=== PATIENT | female | born 1960 | race Caucasian/White ===

== ENCOUNTER 2020-09-04 10:06 | Outpatient (CLI) | payer MEDICARE, SELFPAY ==
[2020-09-04 10:44] LABS: Basophils Percent Auto 0.3 % (0.2-1.2); Eosinophils Absolute Auto 0.2 K/mm3 (0-0.3); Eosinophils Percent Auto 1.9 % (0-4.4); Hematocrit 44.5 % (37.0-47.0); Hemoglobin 14.5 g/dL (12.0-15.0); Immature Granulocyte Absolute 0.02 K/mm3 (0.00-0.031); Immature Granulocyte Percent A 0.2 % (0-0.5); Lymphocytes Absolute Auto 1.55 K/mm3 (0.9-3.2); Lymphocytes Percent Auto 17.6 % (18.3-44.2); Mean Corpuscular HGB Conc 32.6 g/dl (32-36); Mean Corpuscular Hemoglobin 32.7 pg (26-34); Mean Corpuscular Volume 100.5 fl (80-100); Mean Platelet Volume 9.8 fl (7.4-10.4); Monocytes Absolute Auto 0.7 K/mm3 (0.1-0.6); Monocytes Percent Auto 7.8 % (2.6-8.5); Neutrophils Absolute Auto 6.4 K/mm3 (1.3-6.7); Neutrophils Percent Auto 72.2 % (45.5-73.1); Platelet Count Result 256 k/mm3 (150-375); Red Blood Count 4.43 M/mm3 (4.2-5.4); Red Cell Distribution Width 13.2 % (11.5-14.5); White Blood Count 8.8 K/mm3 (4.5-10.0)
[2020-09-04 10:59] LABS: Alanine Aminotransferase 17 U/L (4-35); Alkaline Phosphatase 69 U/L (38-126); Anion Gap 4 mmol/L (8-16); Aspartate Amino Transferase 24 U/L (14-36); Bilirubin,Total 0.4 mg/dL (0.2-1.3); Blood Urea Nitrogen 13 mg/dL (7-17); Calcium 9.5 mg/dL (8.4-10.2); Carbon Dioxide 33 mmol/L (22-30); Chloride 102 mmol/L (98-107); Cholesterol 124 mg/dL (0-200); Estimated Glomerular Filt Rate > 60; Glucose 104 mg/dL (65-105); HDL Direct 39 mg/dL; Potassium 4.3 mmol/L (3.4-5.0); Sodium 139 mmol/L (137-145); Triglycerides 112 mg/dL (<150)
[2020-09-04 11:11] LABS: LDL Cholesterol Direct 58 mg/dL
[2020-09-04 11:22] LABS: Creatinine Urine 84.8 mg/dL
[2020-09-04 11:32] LABS: Total Triiodothyronine (T3) 1.09 NG/ML (0.97-1.69)
[2020-09-04 11:42] LABS: Microalbumin Urine Random < 6.0 mg/L (0-16.7)
[2020-09-04 11:43] LABS: MALB Creatinine Ratio < 7.1 mg/g (0-30)
[2020-09-04 13:55] LABS: Free T4 Free Thyroxine 1.07 ng/mL (0.78-2.19)
[2020-09-04 14:36] LABS: Vitamin D 25 Hydroxy < 12.8 ng/mL
== END 2020-09-04 10:07 | disposition home or self-care (01) ==
PROVIDERS: Family Provider Family Medicine; PCP Family Medicine; Visit Provider Nurse Practitioner
DX: I50.32 Chronic diastolic (congestive) heart failure (principal); E78.2 Mixed hyperlipidemia; E55.9 Vitamin D deficiency, unspecified
CPT/HCPCS: 36415; 80053; 80061; 82043; 82306; 84439; 84443; 84480; 85025

== ENCOUNTER 2020-10-20 09:14 | Outpatient (CLI) | payer MEDICARE, SELFPAY | END 2020-10-20 09:15 | disposition home or self-care (01) | LOC: ANHCOVIDVC 09:14 | PROVIDERS: PCP Family Medicine | DX: Z23 Encounter for immunization (principal) | CPT/HCPCS: 0001A; 91300 ==

== ENCOUNTER 2020-11-10 16:28 | Outpatient (CLI) | payer MEDICARE, SELFPAY | END 2020-11-10 16:29 | disposition home or self-care (01) | LOC: ANHCOVIDVC 16:28 | PROVIDERS: PCP Family Medicine | DX: Z23 Encounter for immunization (principal) | CPT/HCPCS: 0002A; 91300 ==

== ENCOUNTER 2020-12-22 13:48 | Outpatient (CLI) | payer MEDICARE, SELFPAY ==
[2020-12-22 15:21] LABS: Vitamin D 25 Hydroxy 25.6 ng/mL
== END 2020-12-22 13:49 | disposition home or self-care (01) ==
PROVIDERS: PCP Family Medicine; Visit Provider Nurse Practitioner
DX: E55.9 Vitamin D deficiency, unspecified (principal)
CPT/HCPCS: 36415; 82306

== ENCOUNTER → 2020-12-28 01:02 | Outpatient (CLI) | payer MEDICARE, SELFPAY ==
[2020-12-28 18:48] LABS: SARS-CoV-2 RNA PCR Negative
== END ==
PROVIDERS: PCP Family Medicine; Visit Provider Internal Medicine Gastroenterology
DX: Z01.812 Encounter for preprocedural laboratory examination (principal); Z20.822 Contact with and (suspected) exposure to COVID-19
CPT/HCPCS: C9803; U0003; U0005

== ENCOUNTER 2020-12-31 01:51 | Day surgery (SDC) | payer MEDICARE, SELFPAY ==
[2020-12-23 14:28] VITALS: BMI 27.8
[2020-12-31 06:52] VITALS: BP 115/68; PULSE 74; RESP 18; TEMP 36.2; O2SAT 96
[2020-12-31] MEDS: LACTATED RINGERS 1,000 ML 150 ML IV CONT (07:02)
--- NOTE | 2020-12-31 07:31 | WPDGICN ---
GI Consult Note Consult date/time: 12/31/20 07:31 HPI: Reason for visit is colonoscopy. This very pleasant lady seen in consultation request of the primary physician. Impression: Screening and surveillance colonoscopy. The patient's history adenomatous colon polyps. COPD. Tobacco abuse. Anxiety/depression. HLD. HTN. Chronic back pain. Recommendation: Colonoscopy. History: This very pleasant lady is here for screening and surveillance colonoscopy. She has a history adenomatous colon polyps. GI review systems negative. Physical examination: General: very pleasant patient in no acute distress. HEENT: Head was normocephalic sclerae is clear mouth without masses neck was supple. Heart: Rate rhythm regular without S3 or S4. Lungs: decreased breath sounds bilaterally. Abdomen: Soft with no guarding or rigidity. Bowel sounds were active. Neurologic: Cranial nerves 2 through 12 intact. No focal defects. No clonus. Musculoskeletal system: Revealed no joint tenderness or swelling no muscle atrophy. Extremities: Reveal no significant edema. Skin: Warm and dry with normal turgor. Mental status: intact. Patient is alert and oriented. Review of Systems Review of Systems: All systems reviewed & are unremarkable except as noted in HPI and below PMFSH Past Medical History Medical History Anxiety and depression CHF (congestive heart failure) Chronic back pain Chronic constipation COPD (chronic obstructive pulmonary disease) Dyslipidemia Family hx of colon cancer Hx of adenomatous colonic polyps Hx of diverticulitis of colon Hypertension Surgical History Surgical History History of bilateral carpal tunnel release History of lumbar spinal fusion Hx of appendectomy Hx of bone graft Hx of cholecystectomy Hx of colonoscopy Hx of repair of rotator cuff Hx of rotator cuff surgery Hx of tonsillectomy Hx of total hysterectomy Family History Family History Mother Heart disease Cerebrovascular accident Father Heart disease Vocal cord cancer Sibling Lymphoma Other Carcinoma of colon Social History Social History Smoking packs per day: 1 Smoking cigarettes per day: 20.0 Years smoked: 30 Smoking pack-years: 30.00 Smoking status: Current every day smoker Tobacco type: cigarettes Alcohol intake: never Substance use: never Living arrangements: with family Gender identity (if verbalized by the patient): Female Spiritual care concerns: No Meds Home Medications and Allergies Home Medications Medication Instructions Recorded Confirmed Type albuterol sulfate 2 puff INHALATION Q4-5H PRN 07/30/19 12/23/20 History atorvastatin 20 mg PO HS 07/30/19 12/23/20 History carvedilol 12.5 mg PO BID 07/30/19 12/23/20 History cyclobenzaprine 10 mg PO TID 07/30/19 12/23/20 History fenofibrate 160 mg PO DAILY 07/30/19 12/23/20 History furosemide 20 mg PO QAM 07/30/19 12/23/20 History naloxegol [Movantik] 25 mg PO QAM 07/30/19 12/23/20 History oxycodone-acetaminophen 1 tablet PO Q4-5H 07/30/19 12/23/20 History quetiapine 50 mg PO HS 07/30/19 12/23/20 History sertraline 100 mg PO QAM 07/30/19 12/23/20 History triamcinolone acetonide 1 applic TOPICAL BID PRN 07/30/19 12/23/20 History fluticasone propion-salmeterol 2 puff INHALATION Q12H 12/23/20 12/23/20 History [Advair HFA] lisinopril 2.5 mg PO DAILY 12/23/20 12/23/20 History Allergies Allergy/AdvReac Type Severity Reaction Status Date / Time Penicillins Allergy Mild HIVES Verified 12/31/20 06:51 codeine Allergy Unknown Hives Verified 12/31/20 06:51 Contrast Media Allergy Unknown SOB Uncoded 12/23/20 14:24 Vital Signs Vital Signs - 24 hr 12/31/20 06:52 Temperature 36.2 C L Pulse Rate 74
--- NOTE | 2020-12-31 07:33 | WPDANESEPPF ---
Anes - Initial Pre Proc Eval Procedure: Operation Date: 12/31/20 08:00 Proposed Procedures p Screening Colonoscopy - Luis Heaton DO Date/Time: 12/31/20 07:33 Surgeon: Luis Heaton DO Pre Op Diagnosis: family hx colon ca, hx of colon polyps Patient Data Age: 60 Gender: F Height: 5 ft 5 in Weight: 76 kg Last Vital Signs Temp 97.1 F L 12/31/20 06:52 Pulse 74 12/31/20 06:52 Resp 18 12/31/20 06:52 BP 115/68 12/31/20 06:52 Pulse Ox 96 12/31/20 06:52 Allergies Allergy/AdvReac Type Severity Reaction Status Date / Time Penicillins Allergy Mild HIVES Verified 12/31/20 06:51 codeine Allergy Unknown Hives Verified 12/31/20 06:51 Contrast Media Allergy Unknown SOB Uncoded 12/23/20 14:24 Home Medications Medication Instructions Recorded Confirmed Type albuterol sulfate 2 puff INHALATION Q4-5H PRN 07/30/19 12/23/20 History atorvastatin 20 mg PO HS 07/30/19 12/23/20 History carvedilol 12.5 mg PO BID 07/30/19 12/23/20 History cyclobenzaprine 10 mg PO TID 07/30/19 12/23/20 History fenofibrate 160 mg PO DAILY 07/30/19 12/23/20 History furosemide 20 mg PO QAM 07/30/19 12/23/20 History naloxegol [Movantik] 25 mg PO QAM 07/30/19 12/23/20 History oxycodone-acetaminophen 1 tablet PO Q4-5H 07/30/19 12/23/20 History quetiapine 50 mg PO HS 07/30/19 12/23/20 History sertraline 100 mg PO QAM 07/30/19 12/23/20 History triamcinolone acetonide 1 applic TOPICAL BID PRN 07/30/19 12/23/20 History fluticasone propion-salmeterol 2 puff INHALATION Q12H 12/23/20 12/23/20 History [Advair HFA] lisinopril 2.5 mg PO DAILY 12/23/20 12/23/20 History Patient hx anesthesia problems: none Family hx anesthesia problems: none PMFSH Past Medical History Medical History Anxiety and depression CHF (congestive heart failure) Chronic back pain Chronic constipation COPD (chronic obstructive pulmonary disease) Dyslipidemia Family hx of colon cancer Hx of adenomatous colonic polyps Hx of diverticulitis of colon Hypertension Surgical History Surgical History History of bilateral carpal tunnel release History of lumbar spinal fusion Hx of appendectomy Hx of bone graft Hx of cholecystectomy Hx of colonoscopy Hx of repair of rotator cuff Hx of rotator cuff surgery Hx of tonsillectomy Hx of total hysterectomy Family History Family History Mother Heart disease Cerebrovascular accident Father Heart disease Vocal cord cancer Sibling Lymphoma Other Carcinoma of colon Social History Social History Smoking packs per day: 1 Smoking cigarettes per day: 20.0 Years smoked: 30 Smoking pack-years: 30.00 Smoking status: Current every day smoker Tobacco type: cigarettes Alcohol intake: never Substance use: never Living arrangements: with family Gender identity (if verbalized by the patient): Female Spiritual care concerns: No Anes - Eval Final PreProcedure Day of Procedure 12/31/20 07:33 Patient weight: obese Heart: regular rate and rhythm Lungs: clear to auscultation Airway: Mallampati scale class II Neurological: alert and oriented Last oral intake: >/= 8 hours ASA classification: III Emergent: no Anesthetic plan: proceed Anesthesia type and monitoring: general GIVS and standard monitoring Informed Consent: The patient's anesthetic plan and its attendant risks and benefits were discussed with the patient/family/POA. Questions were solicited and answers provided to the satisfaction of the patient/family/POA.
[2020-12-31 08:36] VITALS: BP 115/63; PULSE 72; RESP 19; O2SAT 97
[2020-12-31 08:46] VITALS: BP 120/72; PULSE 70; RESP 19; O2SAT 95
[2020-12-31 08:56] VITALS: BP 115/68; PULSE 69; RESP 19; O2SAT 95
== END 2020-12-31 09:05 | disposition home or self-care (01) ==
PROVIDERS: PCP Family Medicine; Visit Provider Internal Medicine Gastroenterology
PROC: 0DJD8ZZ Inspection of Lower Intestinal Tract, Via Natural or Artificial Opening Endoscopic (ICD-10-PCS; CPT 45378; principal; 2020-12-31 08:00)
DX: Z12.11 Encounter for screening for malignant neoplasm of colon (principal); D12.2 Benign neoplasm of ascending colon; D12.3 Benign neoplasm of transverse colon; K63.5 Polyp of colon; K62.1 Rectal polyp; K57.30 Diverticulosis of large intestine without perforation or abscess without bleeding; K59.09 Other constipation; Z80.0 Family history of malignant neoplasm of digestive organs; Z79.51 Long term (current) use of inhaled steroids; I11.0 Hypertensive heart disease with heart failure; I50.9 Heart failure, unspecified; J44.9 Chronic obstructive pulmonary disease, unspecified; E78.5 Hyperlipidemia, unspecified; F41.8 Other specified anxiety disorders; Z98.1 Arthrodesis status; F17.210 Nicotine dependence, cigarettes, uncomplicated; Z79.891 Long term (current) use of opiate analgesic
CPT/HCPCS: 45380; 45385; 88305; C9803; J2704; J7120; U0003; U0005

== ENCOUNTER 2021-04-20 14:14 | Outpatient (CLI) | payer MEDICARE, SELFPAY ==
[2021-04-20 16:04] LABS: Vitamin D 25 Hydroxy 17.8 ng/mL
== END 2021-04-20 14:15 | disposition home or self-care (01) ==
PROVIDERS: PCP Family Medicine; Visit Provider Nurse Practitioner
DX: E55.9 Vitamin D deficiency, unspecified (principal)
CPT/HCPCS: 36415; 82306

== ENCOUNTER 2022-06-11 12:58 | Outpatient (CLI) | payer MEDICARE, SELFPAY ==
--- NOTE | ~2022-06-11 | XR_ITS ---
XR shoulder RT min 2V 06/11/2022 13:21 Indication: Right shoulder pain Procedure: 4 views right shoulder Comparison: No prior studies for comparison. Findings: There is mild polyarticular osteoarthritis of the right shoulder. Osteopenia. No acute frac ture or traumatic malalignment. Surrounding osseous structures and soft tissues are unremarkable. Impression: 1: No acute fracture. 2: Mild polyarticular osteoarthritis. Reviewed, dictated and finalized at location A. Impression: 1: No acute fracture. 2: Mild polyarticular osteoarthritis.
== END 2022-06-11 12:59 | disposition home or self-care (01) ==
LOC: ANHIMG 13:01
PROVIDERS: PCP Family Medicine; Visit Provider Nurse Practitioner Adult Health
DX: S46.919A Strain of unspecified muscle, fascia and tendon at shoulder and upper arm level, unspecified arm, initial encounter (principal); X58.XXXA Exposure to other specified factors, initial encounter; M19.011 Primary osteoarthritis, right shoulder
CPT/HCPCS: 73030

== ENCOUNTER 2022-08-10 07:57 | Outpatient (CLI) | payer MEDICARE, SELFPAY ==
--- NOTE | ~2022-08-10 | MR_ITS ---
MRI of the right shoulder Technique: Axial proton-density fat-sat images, coronal proton density fat-sat and T2 fat-sat images, and sagittal T1-weighted and T2 fat-sat images were acquired. Clinical History: Pain Findings: There is mild AC joint degenerative change. Coracoclavicular, coracoacromial, and coracohum eral ligaments are probably intact. There is moderate to severe supraspinatus and infraspinatus tendinosis. No definite partial or full-t hickness tear of these tendons is seen. Subscapularis tendon is intact with moderate tendinosis. Tend on of the long head of the biceps is intact. No definite labral tear identified. There is osteophyte formation at the inferomedial humeral head. Articular cartilage of the glenohumer al joint is well-preserved. Small glenohumeral joint effusion present with probable small intra-artic ular loose bodies in the axillary recess. There is minimal fluid distention of the subacromial/subdel toid bursa. No muscle atrophy or edema. Inferior glenohumeral ligament is intact. Impression: Mild degenerative change of the glenohumeral joint with small intra-articular loose bodies. Moderate to advanced rotator cuff tendinosis without tear. No labral tear evident. Minimal subacromial/subdeltoid bursitis. Reviewed, dictated and finalized at [facility]. 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 Moderate to advanced rotator cuff tendinosis without tear. No labral tear evident. Minimal subacromial/subdeltoid bursitis.
== END 2022-08-10 07:58 ==
LOC: MICIMG 07:58
PROVIDERS: PCP Family Medicine; Visit Provider Nurse Practitioner Adult Health
DX: M19.011 Primary osteoarthritis, right shoulder (principal)
CPT/HCPCS: 73221

== ENCOUNTER 2022-11-12 19:22 | Emergency (ER) | payer MEDICARE, MEDICAID, SELFPAY ==
--- NOTE | ~2022-11-12 | XR_ITS ---
EXAMINATION: XR chest 2V Exam Date/Time: 11/12/2022 19:55 CDT HISTORY: fever Comparison: 07/03/2014. RESULT: Lines, tubes, and devices: None. Lungs and pleura: Chronic diffuse reticulonodular opacities and cuffing. Cardiomediastinal silhouette: Stable. Other: No acute osseous or upper abdominal finding. IMPRESSION: Pulmonary opacities may represent bronchiolitis, as can be seen with atypical infection, asthma, aspi ration, and small airways disease. Reviewed, dictated and finalized at location K. IMPRESSION: Pulmonary opacities may represent bronchiolitis, as can be seen with atypical i nfection, asthma, aspiration, and small airways disease.
--- NOTE | ~2022-11-12 | CT_ITS ---
EXAMINATION: CT lumbar spine wo con DATE: 11/12/2022 20:05 INDICATION: low back pain, more R side, pain radiating down R leg . TECHNIQUE: Computed tomography (CT) of the lumbar spine was performed without intravenous contrast. A utomated exposure control and iterative reconstruction technique were employed. The dose-length produ ct was 1038.55 mGy-cm. COMPARISON: CT L-spine 10/25/2016. FINDINGS: Mild lumbar scoliosis. 5 nonrib-bearing lumbar-type vertebral bodies. Pedicles intact. Stab le trace retrolisthesis at L3-4, otherwise normal vertebral body alignment. Vertebral body heights pr eserved. Multilevel disc space narrowing and marginal osteophytosis with vacuum phenomenon at all vis ualized levels. L4-S1 posterior fusion, with uncomplicated appearing hardware. Left L4-L5 facetectomy . Laminectomy defects at L4 and L5. Moderate central canal narrowing at L2-3. Moderate left neural fo raminal narrowing at L3-4 and L5-S1. No severe neural foraminal narrowing or central canal narrowing. Punctate, nonobstructing left lower pole calcification. Atherosclerotic abdominal arterial calcifica tions. Scattered diverticuli. IMPRESSION: No acute fracture or traumatic malalignment in the lumbar spine. No hardware related complication. Reviewed, dictated and finalized at location K. IMPRESSION: No acute fracture or traumatic malalignment in the lumbar spine. No hardware re lated complication.
[2022-11-12 19:29] VITALS: BP 133/79; PULSE 109; RESP 20; TEMP 37.6; O2SAT 97
--- NOTE | 2022-11-12 19:45 | ED.GENADULT ---
HPI - General Adult General Chief complaint: Fall Stated complaint: fever x 2 days/fall with back pain Time Seen by Provider: 11/12/22 19:44 History of Present Illness HPI narrative: Patient seen in triage 61-year-old female presented to the emergency department for evaluation of lower back pain. Patient reports last night she had a ground-level fall that was a mechanical fall caused by tripping over her cat. Patient states this did cause worsening of her chronic lower back pain. Patient reports she does have a spinal fusion from 2011 of L4-L5 and S1. Patient does typically have follow-up with neurology at [facility]. Patient states after the fall she did have increased pain but denies any increased numbness or weakness. Patient denies any sensation of illness yesterday but then today she noticed that she did have some subjective fever and measured her temp and she was found to have a temperature as high as 103. Patient did take some medication for this and patient states that she does feel that her fever has improved. Patient denies any associated nausea vomiting diarrhea. Patient denied any chest pain or shortness of breath. Patient denies any associate abdominal pain. Patient states she is still having her lower back pain but states this was only worsened by the fall. Patient does report sick contacts in her house including a family member that recently had colitis and other family member that did have strep throat. Labs including COVID, strep, CBC CMP UA chest x-ray and lumbar CT are being ordered. Patient will be given Hilliards for pain control in the emergency department. Related Data Home Medications Medication Instructions Recorded Confirmed albuterol sulfate 90 mcg/actuation 2 puff inhalation Q4-5H PRN Dyspnea 07/30/19 12/23/20 aerosol inhaler atorvastatin 20 mg tablet 20 mg PO HS 07/30/19 12/23/20 carvedilol 12.5 mg tablet 12.5 mg PO BID 07/30/19 12/23/20 cyclobenzaprine 10 mg tablet 10 mg PO TID 07/30/19 12/23/20 fenofibrate 160 mg tablet 160 mg PO DAILY 07/30/19 12/23/20 furosemide 20 mg tablet 20 mg PO QAM 07/30/19 12/23/20 naloxegol 25 mg tablet (Movantik) 25 mg PO QAM 07/30/19 12/23/20 oxycodone-acetaminophen 10 mg-325 1 tablet PO Q4-5H 07/30/19 12/23/20 mg tablet quetiapine 50 mg tablet 50 mg PO HS 07/30/19 12/23/20 sertraline 100 mg tablet 100 mg PO QAM 07/30/19 12/23/20 triamcinolone acetonide 0.1 % 1 applic topical BID PRN Itching 07/30/19 12/23/20 topical cream fluticasone propionate 115 2 puff inhalation Q12H 12/23/20 12/23/20 mcg-salmeterol 21 mcg/actuation HFA inhaler (Advair HFA) lisinopril 2.5 mg tablet 2.5 mg PO DAILY 12/23/20 12/23/20 Allergies Allergy/AdvReac Type Severity Reaction Status Date / Time Penicillins Allergy Mild HIVES Verified 11/12/22 19:23 codeine Allergy Unknown Hives Verified 11/12/22 19:23 Contrast Media Allergy Unknown SOB Uncoded 11/12/22 19:23 Review of Systems Review of Systems: All systems reviewed & are unremarkable except as noted in HPI and below PMFSH Past Medical History Medical History (Updated 11/13/22 @ 07:25 by Al Dillon MD) Anxiety and depression CHF (congestive heart failure) Chronic back pain Chronic constipation COPD (chronic obstructive pulmonary disease) Dyslipidemia Family hx of colon cancer Hx of adenomatous colonic polyps Hx of diverticulitis of colon Hypertension Surgical History Surgical History History of bilateral carpal tunnel release History of lumbar spinal fusion Hx of appendectomy Hx of bone graft Hx of cholecystectomy Hx of colonoscopy Hx of repair of rotator cuff Hx of rotator cuff surgery Hx of tonsillectomy Hx of total hysterectomy Family History Family History Mother Heart disease Cerebrovascular accident Father Heart disease Vocal cord cancer Sibling Lymphoma Other Carcinoma of colon
[2022-11-12] MEDS: HYDROcodone/acetaminophen (*CRX) 10-325 MG TABLET 1 TAB PO (19:54)
[2022-11-12 20:01] LABS: Hematocrit 45.2 % (37.0-47.0); Mean Corpuscular HGB Conc 33.2 g/dl (32-36); Mean Corpuscular Hemoglobin 33.4 pg (26-34); Mean Corpuscular Volume 100.7 fl (80-100); Mean Platelet Volume 9.4 fl (7.4-10.4); Platelet Count Result 215 k/mm3 (150-375); Red Blood Count 4.49 M/mm3 (4.2-5.4); Red Cell Distribution Width 15.5 % (11.5-14.5); White Blood Count 11.3 K/mm3 (4.5-10.0)
[2022-11-12 20:13] LABS: Alanine Aminotransferase 17 U/L (6-35); Albumin Level 3.8 g/dL (3.5-5.1); Alkaline Phosphatase 89 U/L (38-126); Anion Gap 7 mmol/L (8-16); Aspartate Amino Transferase 19 U/L (14-36); Bilirubin,Total 0.4 mg/dL (0.2-1.3); Blood Urea Nitrogen 11 mg/dL (7-17); Calcium 8.2 mg/dL (8.4-10.2); Carbon Dioxide 25 mmol/L (22-30); Chloride 106 mmol/L (98-107); Estimated CRCL calculation 90 ml/min; Estimated Glomerular Filt Rate > 60; Glucose 115 mg/dL (65-110); Potassium 3.4 mmol/L (3.4-5.0); Sodium 138 mmol/L (137-145)
[2022-11-12 20:14] LABS: Lactic Acid Reflex 1.5 mmol/L (0.7-2.0)
[2022-11-12 20:30] LABS: Anisocytosis 1+ (NORMAL); Band Neutrophils Percent 4 % (0-6); Lymphocytes Absolute Manual 0.45 K/mm3 (1.1-4.5); Monocytes Absolute Manual 0.22 K/mm3 (0.1-0.90); Monocytes Percent Manual 2 % (3-9); Neutrophils Absolute Manual 10.62 K/mm3 (1.7-7.2); Neutrophils Percent Manual 90 % (46-73); Platelet Estimate Adequate (Adequate); Schistocytes None Seen (NORMAL); Total Cells Counted 100
[2022-11-12 20:36] LABS: Influenza A QL RT-PCR Negative (Negative); Influenza B QL RT-PCR Negative (Negative); RSV RNA, RT-PCR Negative (Negative); SARS-CoV-2 RNA PCR Negative
--- NOTE | 2022-11-12 21:34 | PC.NURSE ---
2133-CALLED AND SPOKE TO MODEL TECHNICIAN. HAS BLOOD FOR PT/PTT. NO STREP WAS SENT TO LAB.
[2022-11-12 21:53] LABS: Partial Thromboplastin Time 27.2 SECONDS (22.3-36.8); Prothrombin Time 12.6 Seconds (11.1-14.7)
[2022-11-12] MEDS: CYCLOBENZAPRINE HCL 10 MG TABLET PO (22:05)
[2022-11-12] MEDS: AZITHROMYCIN 250 MG TABLET 500 MG PO (22:05)
[2022-11-12] MEDS: KETOROLAC 30 MG/ML VIAL (*BKC) IM (22:14)
[2022-11-12 22:20] LABS: Appearance Urine Clear (Clear); Bacteria Urine Rare /hpf; Bilirubin Urine Negative (Negative); Blood Urine 2+ (Negative); Color Urine Yellow (Yellow); Glucose Urine UA Negative (Negative); Ketones Urine Trace mg/dL (Negative); Leukocyte Esterase Ur Negative LEU/UL (Negative); Nitrate Urine Negative (Negative); Non Pathogenic Casts 0-2; Protein Urine Trace mg/dL (Negative); Specific Grav Ur 1.024 (1.001-1.035); Squamous Epithelial Cell Urine Few /hpf (Few); Urobilinogen Urine 0.2 mg/dL (<2.0); WBC Urine 0-5 /hpf
[2022-11-12 22:25] LABS: Add Urine Microscopic? YES
--- NOTE | 2022-11-12 22:35 | PC.NURSE ---
6927-CALLED TO ROOM BY PATIENT'S VISITOR. PATIENT STATES SHE DOES NOT UNDERSTAND WHY SHE IS NOT GETTING ANY PAIN RELIEF. UPDATE TO ERP.
[2022-11-12 22:36] VITALS: BP 110/66; PULSE 87; RESP 18; O2SAT 97
[2022-11-12 22:38] LABS: Strep Group A RT-PCR NOT DETECTED (Negative)
== END 2022-11-12 23:03 | disposition home or self-care (01) ==
PROVIDERS: Emergency Provider Emergency Medicine; PCP Family Medicine
DX: J18.9 Pneumonia, unspecified organism (principal); M54.50 Low back pain, unspecified; I11.0 Hypertensive heart disease with heart failure; I50.9 Heart failure, unspecified; F17.210 Nicotine dependence, cigarettes, uncomplicated; W01.0XXA Fall on same level from slipping, tripping and stumbling without subsequent striking against object, initial encounter; Z20.822 Contact with and (suspected) exposure to COVID-19
CPT/HCPCS: 36415; 71046; 72131; 80053; 81001; 83605; 85025; 85610; 85730; 87637; 87651; 99284; A9270; J1885

== ENCOUNTER 2023-03-17 13:44 | Outpatient (CLI) | payer MEDICARE, MEDICAID, SELFPAY ==
--- NOTE | ~2023-03-17 | CT_ITS ---
EXAMINATION: CT diagnostic chest wo con DATE: 03/17/2023 14:10 INDICATION: Pulmonary nodule TECHNIQUE: Computed tomography (CT) of the chest was performed without intravenous contrast. The dose -length product (DLP) was 158.40 mGy-cm. Automated exposure control and iterative reconstruction tech nique were employed. COMPARISON: None FINDINGS: The lungs are free of acute opacities. There is a 2 mm nodule in the left upper lobe on willy ge 29. No pleural effusion or pneumothorax. Calcified mediastinal lymph nodes are consistent with old granulomatous disease. The heart size is normal. A right lower paratracheal lymph node is upper limi ts of normal in size. There is calcified coronary artery atherosclerosis. Punctate calcifications in otherwise normal appearing liver and spleen likely represent healed granulomatous disease. There is s evere thoracic spondylosis. IMPRESSION: 1. 2 mm nodule of the left upper lobe, likely benign. If the patient has no risk factors for malignan cy, no further follow up is required. If there are risk factors for malignancy (i.e., history of smo ankit, asbestos or radiation exposure), consider followup CT in 12 months. Reviewed, dictated and finalized at location F. IMPRESSION: 1. 2 mm nodule of the left upper lobe, likely benign. If the patient has no ris k factors for malignancy, no further follow up is required. If there are risk factors for malignancy (i.e., history of smoking, asbestos or radiation exposur e), consider followup CT in 12 months.
== END 2023-03-17 13:45 | disposition home or self-care (01) ==
PROVIDERS: PCP Family Medicine; Visit Provider Nurse Practitioner Adult Health
DX: R91.1 Solitary pulmonary nodule (principal)
CPT/HCPCS: 71250

== ENCOUNTER 2023-03-29 01:55 | Day surgery (SDC) | payer MEDICARE, MEDICAID, SELFPAY ==
[2023-03-15 13:13] VITALS: BMI 23.3
[2023-03-29 06:50] VITALS: BP 125/65; PULSE 89; RESP 20; TEMP 36.3; O2SAT 95
[2023-03-29] MEDS: LACTATED RINGERS 1,000 ML 150 ML IV CONT (07:02)
--- NOTE | 2023-03-29 07:50 | PM.HPGS ---
History of Present Illness History of Present Illness Consent: Risks, benefits, and alternatives have been discussed and questions answered. Patient agrees to proceed with procedure. Chief complaint: diarrhea, abdominal pain Narrative: Veronica Hagan is a 62 year old female with colon polyps 2020 but had poor prep and recommended to repeat in 2 years, also weight loss and nausea. CT chest small lung nodule, no other findings. Review of Systems Constitutional: Constitutional: Denies headache(s) and Denies weakness Eyes: Eyes: Denies blurry vision ENT: Reports Normal hearing present, Denies headache(s) and Denies neck pain Cardiovascular: Cardiovascular: Denies chest pain and Denies dyspnea Respiratory: Respiratory: Denies dyspnea Gastrointestinal: Gastrointestinal: Reports no additional gastrointestinal complaints Genitourinary: Genitourinary: Denies dysuria Musculoskeletal: Musculoskeletal: Denies neck pain Integumentary/Breasts: Skin/Breast: Denies dry skin Neurologic: Reports Normal hearing present, Denies headache(s) and Denies weakness Psychiatric: Psychiatric: Denies anxiety Endocrine: Endocrine: Denies change in body appearance Hematologic/Lymphatic: Hematologic/Lymphatic: Denies easy bleeding Allergic/Immunologic: Allergic/Immunologic: Denies urticaria PMFSH Past Medical History Medical History (Updated 03/29/23 @ 07:51 by Timothy King MD) Anxiety and depression CHF (congestive heart failure) Chronic back pain Chronic constipation COPD (chronic obstructive pulmonary disease) Dyslipidemia Family hx of colon cancer Hx of adenomatous colonic polyps Hx of diverticulitis of colon Hypertension Nausea Surgical History Surgical History History of bilateral carpal tunnel release History of lumbar spinal fusion Hx of appendectomy Hx of bone graft Hx of cholecystectomy Hx of colonoscopy Hx of repair of rotator cuff Hx of rotator cuff surgery Hx of tonsillectomy Hx of total hysterectomy Family History Family History Mother Heart disease Cerebrovascular accident Father Heart disease Vocal cord cancer Sibling Lymphoma Other Carcinoma of colon Social History Social History Smoking packs per day: 1 Smoking cigarettes per day: 20.0 Years smoked: 44 Smoking pack-years: 44.00 Smoking status: Current every day smoker Tobacco type: cigarettes Alcohol intake: never Substance use: never Substance use type: does not use Living arrangements: with family Gender identity (if verbalized by the patient): Female Spiritual care concerns: No Meds Home Medications and Allergies Home Medications Medication Instructions Recorded Confirmed Type albuterol sulfate 90 mcg/actuation 2 puff inhalation Q4-5H PRN Dyspnea 07/30/19 03/15/23 History aerosol inhaler atorvastatin 20 mg tablet 20 mg PO HS 07/30/19 03/15/23 History carvedilol 12.5 mg tablet 12.5 mg PO BID 07/30/19 03/15/23 History fenofibrate 160 mg tablet 160 mg PO DAILY 07/30/19 03/15/23 History furosemide 20 mg tablet 20 mg PO QAM 07/30/19 03/15/23 History naloxegol 25 mg tablet (Movantik) 25 mg PO QAM 07/30/19 03/15/23 History oxycodone-acetaminophen 10 mg-325 1 tablet PO Q4-5H 07/30/19 03/15/23 History mg tablet quetiapine 50 mg tablet 50 mg PO HS 07/30/19 03/15/23 History sertraline 100 mg tablet 100 mg PO QAM 07/30/19 03/15/23 History triamcinolone acetonide 0.1 % 1 applic topical BID PRN Itching 07/30/19 03/15/23 History topical cream fluticasone propionate 115 2 puff inhalation Q12H 12/23/20 03/15/23 History mcg-salmeterol 21 mcg/actuation HFA inhaler (Advair HFA) lisinopril 2.5 mg tablet 2.5 mg PO DAILY 12/23/20 03/15/23 History cyclobenzaprine 10 mg tablet 10 mg PO BID 5 days #10 tabs 11/12/22 03/15/23 Rx a
[2023-03-29 07:58] VITALS: BP 84/52; PULSE 75; RESP 25; O2SAT 95
[2023-03-29 08:08] VITALS: BP 93/54; PULSE 71; RESP 21; O2SAT 95
[2023-03-29 08:18] VITALS: BP 106/65; PULSE 70; RESP 19; O2SAT 100
== END 2023-03-29 08:22 | disposition home or self-care (01) ==
PROVIDERS: PCP Family Medicine; Visit Provider Internal Medicine Gastroenterology
PROC: 0DJD8ZZ Inspection of Lower Intestinal Tract, Via Natural or Artificial Opening Endoscopic (ICD-10-PCS; CPT 45378; principal; 2023-03-29 08:00)
DX: Z12.11 Encounter for screening for malignant neoplasm of colon (principal); K64.8 Other hemorrhoids; Z86.010 Personal history of colon polyps; Z53.8 Procedure and treatment not carried out for other reasons; J44.9 Chronic obstructive pulmonary disease, unspecified; I11.0 Hypertensive heart disease with heart failure; I50.9 Heart failure, unspecified; E78.5 Hyperlipidemia, unspecified; K59.09 Other constipation; Z80.0 Family history of malignant neoplasm of digestive organs; Z98.1 Arthrodesis status; F17.210 Nicotine dependence, cigarettes, uncomplicated; Z79.51 Long term (current) use of inhaled steroids; Z79.891 Long term (current) use of opiate analgesic
CPT/HCPCS: G0105; J2704; J7120

== ENCOUNTER 2023-04-26 01:44 | Day surgery (SDC) | payer MEDICARE, MEDICAID, SELFPAY ==
[2023-04-11 13:46] VITALS: BMI 23.1
[2023-04-26 06:30] VITALS: BP 90/63; PULSE 90; RESP 20; TEMP 36.1; O2SAT 91
--- NOTE | 2023-04-26 06:39 | SUR.PREOP ---
ADELSO Wick notified of pt VS. pt states she took her BP meds this am and that she does not wear oxygen at home but has been told she has low oxygen levels before. pt is smoker and has hx of COPD.
[2023-04-26] MEDS: LACTATED RINGERS 1,000 ML 150 ML IV CONT (06:47)
[2023-04-26 06:49] VITALS: O2SAT 99
--- NOTE | 2023-04-26 06:49 | SUR.PREOP ---
pt brought home inhalers with her. pt to use per anesthesia before procedure.
--- NOTE | 2023-04-26 07:27 | WPDANESEPPF ---
Anes - Initial Pre Proc Eval Procedure: Operation Date: 04/26/23 07:30 Proposed Procedures p Esophagogastroduodenoscopy & Colonoscopy - Timothy King MD Date/Time: 04/26/23 07:27 Surgeon: Timothy King MD Pre Op Diagnosis: family hx colon ca, abnormal weightloss,nausea Patient Data Age: 62 Gender: F Height: 7.04 m Weight: 62.3 kg Last Vital Signs Temp 36.1 C L 04/26/23 06:30 Pulse 90 04/26/23 06:30 Resp 20 04/26/23 06:30 BP 90/63 L 04/26/23 06:30 Pulse Ox 99 04/26/23 06:49 O2 Del Method Nasal Cannula 04/26/23 06:49 O2 Flow Rate 2 04/26/23 06:49 Allergies Allergy/AdvReac Type Severity Reaction Status Date / Time Penicillins Allergy Mild HIVES Verified 04/26/23 06:28 codeine Allergy Unknown Hives Verified 04/26/23 06:28 Contrast Media Allergy Unknown SOB Uncoded 04/26/23 06:28 Home Medications Medication Instructions Recorded Confirmed Type albuterol sulfate 90 mcg/actuation 2 puff inhalation Q4-5H PRN Dyspnea 07/30/19 04/11/23 History aerosol inhaler atorvastatin 20 mg tablet 20 mg PO HS 07/30/19 04/11/23 History carvedilol 12.5 mg tablet 12.5 mg PO BID 07/30/19 04/11/23 History fenofibrate 160 mg tablet 160 mg PO DAILY 07/30/19 04/11/23 History furosemide 20 mg tablet 20 mg PO QAM 07/30/19 04/11/23 History naloxegol 25 mg tablet (Movantik) 25 mg PO QAM 07/30/19 04/11/23 History quetiapine 50 mg tablet 50 mg PO HS 07/30/19 04/11/23 History sertraline 100 mg tablet 100 mg PO QAM 07/30/19 04/11/23 History triamcinolone acetonide 0.1 % 1 applic topical BID PRN Itching 07/30/19 04/11/23 History topical cream fluticasone propionate 115 2 puff inhalation Q12H 12/23/20 04/11/23 History mcg-salmeterol 21 mcg/actuation HFA inhaler (Advair HFA) lisinopril 2.5 mg tablet 2.5 mg PO DAILY 12/23/20 04/11/23 History cyclobenzaprine 10 mg tablet 10 mg PO BID 5 days #10 tabs 11/12/22 04/11/23 Rx alprazolam 0.5 mg tablet 0.5 mg PO PRN PRN Anxiety 03/15/23 04/11/23 History oxycodone 10 mg tablet 10 mg PO PRN PRN Pain 03/29/23 04/11/23 History Patient hx anesthesia problems: none Family hx anesthesia problems: none Results Review: All pre-operative results and documents have been reviewed as part of the pre-operative evaluation. [facility] Past Medical History Medical History Anxiety and depression CHF (congestive heart failure) Chronic back pain Chronic constipation COPD (chronic obstructive pulmonary disease) Dyslipidemia Family hx of colon cancer Hx of adenomatous colonic polyps Hx of diverticulitis of colon Hypertension Nausea Weight loss Surgical History Surgical History History of bilateral carpal tunnel release History of lumbar spinal fusion Hx of appendectomy Hx of bone graft Hx of cholecystectomy Hx of colonoscopy Hx of repair of rotator cuff Hx of rotator cuff surgery Hx of tonsillectomy Hx of total hysterectomy Family History Family History Mother Heart disease Cerebrovascular accident Father Heart disease Vocal cord cancer Sibling Lymphoma Other Carcinoma of colon Social History Social History Smoking packs per day: 1 Smoking cigarettes per day: 20.0 Years smoked: 30 Smoking pack-years: 30.00 Smoking status: Current every day smoker Tobacco type: cigarettes Alcohol intake: never Substance use: never Substance use type: does not use Living arrangements: with family Gender identity (if verbalized by the patient): Female Spiritual care concerns: No Anes - Eval Final PreProcedure Day of Procedure 04/26/23 07:27 Patient weight: obese Heart: regular rate and rhythm Lungs: decreased breath sounds Airway: Mallampati scale class II Neurological: alert and orient
--- NOTE | 2023-04-26 07:31 | WPDHPUPDATE1 ---
History and Physical Update Update Date/Time: 04/26/23 07:31 History and Physical has been reviewed, including an updated exam of the patient. There are NO changes in the patient's condition. Risks, benefits, and alternatives have been discussed and questions answered. Patient agrees to proceed with procedure.
--- NOTE | 2023-04-26 07:57 | SUR.OPER ---
EGD start 734 end 739, Colonoscopy start 747
[2023-04-26 08:14] VITALS: BP 130/96; PULSE 76; RESP 18; O2SAT 96
[2023-04-26 08:24] VITALS: BP 102/59; PULSE 74; RESP 18; O2SAT 100
[2023-04-26 08:34] VITALS: BP 116/69; PULSE 72; RESP 18; O2SAT 96
== END 2023-04-26 08:51 | disposition home or self-care (01) ==
PROVIDERS: PCP Family Medicine; Visit Provider Internal Medicine Gastroenterology
PROC: 0DJ08ZZ Inspection of Upper Intestinal Tract, Via Natural or Artificial Opening Endoscopic (ICD-10-PCS; CPT 43235; principal; 2023-04-26 07:30)
DX: Z09 Encounter for follow-up examination after completed treatment for conditions other than malignant neoplasm (principal); D12.2 Benign neoplasm of ascending colon; D12.3 Benign neoplasm of transverse colon; K63.5 Polyp of colon; K57.30 Diverticulosis of large intestine without perforation or abscess without bleeding; K29.70 Gastritis, unspecified, without bleeding; K29.50 Unspecified chronic gastritis without bleeding; Z80.0 Family history of malignant neoplasm of digestive organs; I11.0 Hypertensive heart disease with heart failure; I50.9 Heart failure, unspecified; J44.9 Chronic obstructive pulmonary disease, unspecified; E78.5 Hyperlipidemia, unspecified; K59.09 Other constipation; F41.8 Other specified anxiety disorders; M54.9 Dorsalgia, unspecified; G89.29 Other chronic pain; Z79.891 Long term (current) use of opiate analgesic; Z79.51 Long term (current) use of inhaled steroids; Z98.1 Arthrodesis status; F17.210 Nicotine dependence, cigarettes, uncomplicated; E66.9 Obesity, unspecified
CPT/HCPCS: 45385; 43239; 88305; J2704; J7120

== ENCOUNTER 2023-10-14 17:14 | Emergency (ER) | payer MEDICARE, MEDICAID, SELFPAY ==
[2023-10-14 17:19] VITALS: BP 126/78; PULSE 98; RESP 18; TEMP 36.3; O2SAT 96
--- NOTE | 2023-10-14 17:36 | ED.GENADULT ---
HPI - General Adult General Chief complaint: Shortness of Breath/Dyspnea Stated complaint: covid +, sob, confusion Time Seen by Provider: 10/14/23 17:24 History of Present Illness HPI narrative: 62-year-old female presenting to the emergency department for evaluation of increased cough and congestion post COVID. Patient was diagnosed with COVID on 10/08. Related Data Home Medications Medication Instructions Recorded Confirmed albuterol sulfate 90 mcg/actuation 2 puff inhalation Q4-5H PRN Dyspnea 07/30/19 04/11/23 aerosol inhaler atorvastatin 20 mg tablet 20 mg PO HS 07/30/19 04/11/23 carvedilol 12.5 mg tablet 12.5 mg PO BID 07/30/19 04/11/23 fenofibrate 160 mg tablet 160 mg PO DAILY 07/30/19 04/11/23 furosemide 20 mg tablet 20 mg PO QAM 07/30/19 04/11/23 naloxegol 25 mg tablet (Movantik) 25 mg PO QAM 07/30/19 04/11/23 quetiapine 50 mg tablet 50 mg PO HS 07/30/19 04/11/23 sertraline 100 mg tablet 100 mg PO QAM 07/30/19 04/11/23 triamcinolone acetonide 0.1 % 1 applic topical BID PRN Itching 07/30/19 04/11/23 topical cream fluticasone propionate 115 2 puff inhalation Q12H 12/23/20 04/11/23 mcg-salmeterol 21 mcg/actuation HFA inhaler (Advair HFA) lisinopril 2.5 mg tablet 2.5 mg PO DAILY 12/23/20 04/11/23 alprazolam 0.5 mg tablet 0.5 mg PO PRN PRN Anxiety 03/15/23 04/11/23 oxycodone 10 mg tablet 10 mg PO PRN PRN Pain 03/29/23 04/11/23 Allergies Allergy/AdvReac Type Severity Reaction Status Date / Time Penicillins Allergy Mild HIVES Verified 10/14/23 17:23 codeine Allergy Unknown Hives Verified 10/14/23 17:23 Contrast Media Allergy Unknown SOB Uncoded 10/14/23 17:23 Review of Systems Review of Systems: All systems reviewed & are unremarkable except as noted in HPI and below PMFSH Past Medical History Medical History Anxiety and depression CHF (congestive heart failure) Chronic back pain Chronic constipation COPD (chronic obstructive pulmonary disease) Dyslipidemia Family hx of colon cancer Hx of adenomatous colonic polyps Hx of diverticulitis of colon Hypertension Nausea Weight loss Surgical History Surgical History History of bilateral carpal tunnel release History of lumbar spinal fusion Hx of appendectomy Hx of bone graft Hx of cholecystectomy Hx of colonoscopy Hx of repair of rotator cuff Hx of rotator cuff surgery Hx of tonsillectomy Hx of total hysterectomy Family History Family History Mother Heart disease Cerebrovascular accident Father Heart disease Vocal cord cancer Sibling Lymphoma Other Carcinoma of colon Social History Social History Smoking packs per day: 1 Smoking cigarettes per day: 20.0 Years smoked: 30 Smoking pack-years: 30.00 Smoking status: Current every day smoker Tobacco type: cigarettes Alcohol intake: never Substance use: never Substance use type: does not use Living arrangements: with family Gender identity (if verbalized by the patient): Female Spiritual care concerns: No Exam Narrative: APPEARANCE: Well appearing, no pain, no distress, well-nourished. HEAD: normocephalic, atraumatic. EYES: PERRLA/EOMI, conjunctivae clear. NOSE: Normal no drainage EARS:TMS clear with good light reflex. THROAT: Pharynx clear, no exudate. NECK: Supple. No adenopathy, no masses. RESPIRATORY: Airway patent, respirations nonlabored. Clear to auscultation bilaterally, no rales, rhonchi, wheezing. CARDIOVASCULAR: Regular rate and rhythm without murmurs rubs or gallops. ABDOMINAL: Soft, nontender, nondistended, normal bowel sounds MUSCULOSKELETAL: Moves all extremities. Strength/ROM intact, No edema, No calf tenderness. NEURO: Alert. Cranial nerves II through XII intact. Grossly intact SKIN: Warm, dry. Normal Color
[2023-10-14] MEDS: HYDROcodone/acetaminophen (*CRX) 5-325 MG TABLET 1 TAB PO (17:47)
[2023-10-14 18:12] VITALS: PULSE 99; RESP 18
[2023-10-14] MEDS: ALBUTEROL SULFATE NEB 2.5 MG/3 ML INH INHALATION (18:17)
== END 2023-10-14 18:53 | disposition home or self-care (01) ==
PROVIDERS: Emergency Provider Emergency Medicine; PCP Family Medicine
DX: U07.1 COVID-19 (principal); I50.9 Heart failure, unspecified; I11.0 Hypertensive heart disease with heart failure; E78.5 Hyperlipidemia, unspecified; F41.9 Anxiety disorder, unspecified; F32.A Depression, unspecified; F17.210 Nicotine dependence, cigarettes, uncomplicated; Z98.1 Arthrodesis status; Z86.010 Personal history of colon polyps; Z90.49 Acquired absence of other specified parts of digestive tract; Z90.710 Acquired absence of both cervix and uterus
CPT/HCPCS: 94640; 99283; A9270

== ENCOUNTER 2023-11-09 19:37 | Emergency (ER) | payer MEDICARE, MEDICAID, SELFPAY ==
--- NOTE | ~2023-11-09 | XR_ITS ---
EXAMINATION: XR chest 2V Exam Date/Time: 11/09/2023 20:10 CDT HISTORY: weakness/pain PATIENT KYPHOTIC WITH HX SPINAL FUSION Comparison: 11/12/2022. RESULT: Lines, tubes, and devices: Incompletely visualized spinal fusion hardware. Lungs and pleura: Antilordotic positioning. Mild diffuse reticulonodular opacities. Cardiomediastinal silhouette: Partially obscured by positioning. Other: No acute osseous or upper abdominal finding. IMPRESSION: Mild respiratory bronchiolitis, unchanged. Reviewed, dictated and finalized at location [facility].
[2023-11-09 19:47] VITALS: BP 110/66; PULSE 76; RESP 16; TEMP 36.6; O2SAT 99
--- NOTE | 2023-11-09 19:51 | ECG_ITS ---
Measurements Intervals Tim[place] Rate: 73 P: 60 ME: 166 QRS: -4 QRSD: 74 T: 56 QT: 390 QTc: 432 Interpretive Statements SINUS RHYTHM RSR' IN V1 OR V2, PROBABLY NORMAL VARIANT BORDERLINE T WAVE ABNORMALITY- ANTERIOR LEADS BASELINE ARTIFACT- I, II, III, AVR, AVL, AVF, V1-V2 BORDERLINE ECG NO PREVIOUS ECG AVAILABLE FOR COMPARISON Electronically Signed On 11-09-2023 20:27:41 CDT by Gary Madrid D.O.
[2023-11-09 20:16] LABS: Basophils Percent Auto 0.5 % (0.2-1.2); Eosinophils Absolute Auto 0.2 K/mm3 (0-0.3); Eosinophils Percent Auto 1.9 % (0-4.4); Hematocrit 43.6 % (37.0-47.0); Hemoglobin 13.9 g/dL (12.0-15.0); Immature Granulocyte Absolute 0.01 K/mm3 (0.00-0.031); Immature Granulocyte Percent A 0.1 % (0-0.5); Lymphocytes Absolute Auto 2.65 K/mm3 (0.9-3.2); Lymphocytes Percent Auto 34.2 % (18.3-44.2); Mean Corpuscular HGB Conc 31.9 g/dl (32-36); Mean Corpuscular Hemoglobin 32.3 pg (26-34); Mean Corpuscular Volume 101.2 fl (80-100); Mean Platelet Volume 9.6 fl (7.4-10.4); Monocytes Absolute Auto 0.6 K/mm3 (0.1-0.6); Monocytes Percent Auto 7.7 % (2.6-8.5); Neutrophils Absolute Auto 4.3 K/mm3 (1.3-6.7); Neutrophils Percent Auto 55.6 % (45.5-73.1); Platelet Count Result 285 k/mm3 (150-375); Red Blood Count 4.31 M/mm3 (4.2-5.4); Red Cell Distribution Width 14.5 % (11.5-14.5); White Blood Count 7.8 K/mm3 (4.5-10.0)
[2023-11-09 20:28] LABS: Alanine Aminotransferase 14 U/L (6-35); Albumin Level 3.9 g/dL (3.5-5.1); Alkaline Phosphatase 82 U/L (38-126); Anion Gap 5 mmol/L (4-12); Aspartate Amino Transferase 21 U/L (14-36); Bilirubin,Total 0.3 mg/dL (0.2-1.3); Blood Urea Nitrogen 23 mg/dL (7-17); Calcium 9.2 mg/dL (8.4-10.2); Carbon Dioxide 27 mmol/L (22-30); Chloride 105 mmol/L (98-107); Estimated CRCL calculation 74 ml/min; Estimated Glomerular Filt Rate > 60; Glucose 92 mg/dL (65-110); Potassium 4.2 mmol/L (3.4-5.0); Sodium 137 mmol/L (137-145)
[2023-11-09 21:20] LABS: Appearance Urine Cloudy (Clear); Bacteria Urine 3+ /hpf; Bilirubin Urine Negative (Negative); Blood Urine Negative (Negative); Calcium Oxalate Crystals Urine Present /hpf; Color Urine Yellow (Yellow); Glucose Urine UA Negative (Negative); Ketones Urine Trace mg/dL (Negative); Leukocyte Esterase Ur Trace LEU/UL (Negative); Need Manual Microscopic Reviewed; Nitrate Urine Negative (Negative); Non Pathogenic Casts 0-2; Protein Urine Negative (Negative); Specific Grav Ur 1.028 (1.001-1.035); Squamous Epithelial Cell Urine Moderate /hpf (Few); pH Urine 5.5 (5.0-9.0)
[2023-11-09 21:22] LABS: Add Urine Microscopic? YES
[2023-11-09 21:55] VITALS: BP 95/65; PULSE 69; RESP 18; O2SAT 100
--- NOTE | 2023-11-09 23:32 | ED.GENADULT ---
HPI - General Adult General Chief complaint: Unspecified Stated complaint: blood pressure problems Time Seen by Provider: 11/09/23 23:20 Source: patient Mode of arrival: ambulatory Limitations: no limitations History of Present Illness HPI narrative: This is a 62-year-old female who presents to the ED with chief complaint of fluctuations in blood pressure over the last couple of days. Reports that her blood pressures have been going high and low and she is feeling generally weak and tired. Patient states that she has intermittent shortness of breath and is supposed to take daily inhalers. Chart review was history of COPD but patient denies this, but does state that she has not been taking her inhalers because she has been out of them. Patient states she has recent diagnosis of COVID in the facility a couple weeks ago. reports decreased appetite. Not taking in a lot of water. reports dry cough with subsequent right-sided rib pain due to the cough. Denies chest pain, abdominal pain, nausea, vomiting, flank pain, urinary symptoms, syncope. Additional complaints of chronic back pain, reports she she has had multiple lumbar and cervical fusions. She takes daily oxycodone. Related Data Home Medications Medication Instructions Recorded Confirmed albuterol sulfate 90 mcg/actuation 2 puff inhalation Q4-5H PRN Dyspnea 07/30/19 04/11/23 aerosol inhaler atorvastatin 20 mg tablet 20 mg PO HS 07/30/19 04/11/23 carvedilol 12.5 mg tablet 12.5 mg PO BID 07/30/19 04/11/23 fenofibrate 160 mg tablet 160 mg PO DAILY 07/30/19 04/11/23 furosemide 20 mg tablet 20 mg PO QAM 07/30/19 04/11/23 naloxegol 25 mg tablet (Movantik) 25 mg PO QAM 07/30/19 04/11/23 quetiapine 50 mg tablet 50 mg PO HS 07/30/19 04/11/23 sertraline 100 mg tablet 100 mg PO QAM 07/30/19 04/11/23 triamcinolone acetonide 0.1 % 1 applic topical BID PRN Itching 07/30/19 04/11/23 topical cream fluticasone propionate 115 2 puff inhalation Q12H 12/23/20 04/11/23 mcg-salmeterol 21 mcg/actuation HFA inhaler (Advair HFA) lisinopril 2.5 mg tablet 2.5 mg PO DAILY 12/23/20 04/11/23 alprazolam 0.5 mg tablet 0.5 mg PO PRN PRN Anxiety 03/15/23 04/11/23 oxycodone 10 mg tablet 10 mg PO PRN PRN Pain 03/29/23 04/11/23 Allergies Allergy/AdvReac Type Severity Reaction Status Date / Time Penicillins Allergy Mild HIVES Verified 11/09/23 19:50 codeine Allergy Unknown Hives Verified 11/09/23 19:50 Contrast Media Allergy Unknown SOB Uncoded 11/09/23 19:50 Review of Systems Review of Systems: All systems as dictated in [facility] Past Medical History Medical History Anxiety and depression CHF (congestive heart failure) Chronic back pain Chronic constipation COPD (chronic obstructive pulmonary disease) Dyslipidemia Family hx of colon cancer Hx of adenomatous colonic polyps Hx of diverticulitis of colon Hypertension Nausea Weight loss Surgical History Surgical History History of bilateral carpal tunnel release History of lumbar spinal fusion Hx of appendectomy Hx of bone graft Hx of cholecystectomy Hx of colonoscopy Hx of repair of rotator cuff Hx of rotator cuff surgery Hx of tonsillectomy Hx of total hysterectomy Family History Family History Mother Heart disease Cerebrovascular accident Father Heart disease Vocal cord cancer Sibling Lymphoma Other Carcinoma of colon Social History Social History Smoking packs per day: 1 Smoking cigarettes per day: 20.0 Years smoked: 30 Smoking pack-years: 30.00 Smoking status: Current every day smoker Tobacco type: cigarettes Alcohol intake: never Substance use: never Substance use type: does not use Living arrangements: with family Gender identity (if verbalized
[2023-11-09 23:43] VITALS: PULSE 70; RESP 16
[2023-11-09] MEDS: IPRATROPIUM 0.5 MG/ALBUTEROL SULFATE 2.5 MG AMPUL.NEB 3 ML INHALATION (23:43)
[2023-11-09 23:59] VITALS: PULSE 73; RESP 16
[2023-11-10] MEDS: SODIUM CHLORIDE 0.9% IV 1,000 ML 999 ML IV CONT (00:17)
[2023-11-10] MEDS: HYDROmorphone HCL INJ (*CRX) 1 MG/ML SYR 0.5 MG IV PUSH (00:34)
[2023-11-10 00:37] VITALS: BP 116/62; PULSE 78; RESP 15; O2SAT 97
[2023-11-10 01:02] LABS: Influenza A QL RT-PCR Negative (Negative); Influenza B QL RT-PCR Negative (Negative); RSV RNA, RT-PCR Negative (Negative); SARS-CoV-2 RNA PCR Negative (Negative)
[2023-11-10 01:48] VITALS: BP 114/54; PULSE 72; RESP 16; O2SAT 97
== END 2023-11-10 01:50 | disposition home or self-care (01) ==
PROVIDERS: Emergency Medicine; Emergency Provider Physician Assistant; PCP Family Medicine
DX: E86.0 Dehydration (principal); Z20.822 Contact with and (suspected) exposure to COVID-19; J44.9 Chronic obstructive pulmonary disease, unspecified; I11.0 Hypertensive heart disease with heart failure; I50.9 Heart failure, unspecified; E78.5 Hyperlipidemia, unspecified; F41.9 Anxiety disorder, unspecified; F32.A Depression, unspecified; F17.210 Nicotine dependence, cigarettes, uncomplicated; Z98.1 Arthrodesis status; Z86.16 Personal history of COVID-19; Z86.010 Personal history of colon polyps; Z90.49 Acquired absence of other specified parts of digestive tract; Z90.710 Acquired absence of both cervix and uterus; R94.31 Abnormal electrocardiogram [ECG] [EKG]
CPT/HCPCS: 36415; 71046; 80053; 81001; 85025; 87077; 87086; 87088; 87637; 93005; 94640; 96361; 96374; 99284; J1170; J7030

== ENCOUNTER 2023-12-15 19:33 | Emergency (ER) | payer MEDICARE, MEDICAID, SELFPAY ==
--- NOTE | ~2023-12-15 | XR_ITS ---
EXAMINATION: XR hip LT min 2V DATE: 12/15/2023 21:06 INDICATION: Fall. TECHNIQUE: 2 views of left hip were obtained. COMPARISON: None. FINDINGS: Bone alignment is normal. No fracture. There is mild left hip osteoarthritis. There are curt nges of anterior and posterior fusion procedures from L4 to S1. IMPRESSION: 1. Mild left hip osteoarthritis. Reviewed, dictated and finalized at location E.
--- NOTE | ~2023-12-15 | XR_ITS ---
EXAMINATION: XR femur LT min 2V DATE: 12/15/2023 21:06 INDICATION: Left thigh injury. Fall. TECHNIQUE: 2 views of left femur on 4 radiographs were obtained. COMPARISON: None. FINDINGS: Bone alignment is normal. No fracture. There is mild left hip and left knee osteoarthritis. There is a small knee joint effusion. IMPRESSION: 1. Mild left hip and knee osteoarthritis. 2. Small left knee joint effusion. Reviewed, dictated and finalized at location E.
[2023-12-15 19:50] VITALS: BP 104/60; PULSE 85; RESP 16; TEMP 36.3; O2SAT 98
[2023-12-15 22:04] VITALS: BP 106/56; PULSE 71; RESP 16; O2SAT 100
--- NOTE | 2023-12-15 23:25 | ED.FALL ---
HPI - Fall General Chief Complaint: Fall Stated Complaint: left leg pain after fall on 12/11 Time Seen by Provider: 12/15/23 22:51 Source: patient Mode of arrival: ambulatory Limitations: no limitations History of Present Illness HPI Narrative: This is a 63-year-old female who presents to the ED with chief complaint of left lateral hip pain onset after a fall that occurred 2 days ago. Patient reports that she stood up too quickly, lost her balance and fell onto her left side. Denies any head injury or LOC. states she is not taking any blood thinners. Reports that she has been in a lot of pain at home and her oxycodone has not been helping much. She has been taking oxycodone for chronic back pain for 10+ years. Related Data Home Medications Medication Instructions Recorded Confirmed albuterol sulfate 90 mcg/actuation 2 puff inhalation Q4-5H PRN Dyspnea 07/30/19 04/11/23 aerosol inhaler atorvastatin 20 mg tablet 20 mg PO HS 07/30/19 04/11/23 carvedilol 12.5 mg tablet 12.5 mg PO BID 07/30/19 04/11/23 fenofibrate 160 mg tablet 160 mg PO DAILY 07/30/19 04/11/23 furosemide 20 mg tablet 20 mg PO QAM 07/30/19 04/11/23 naloxegol 25 mg tablet (Movantik) 25 mg PO QAM 07/30/19 04/11/23 quetiapine 50 mg tablet 50 mg PO HS 07/30/19 04/11/23 sertraline 100 mg tablet 100 mg PO QAM 07/30/19 04/11/23 triamcinolone acetonide 0.1 % 1 applic topical BID PRN Itching 07/30/19 04/11/23 topical cream fluticasone propionate 115 2 puff inhalation Q12H 12/23/20 04/11/23 mcg-salmeterol 21 mcg/actuation HFA inhaler (Advair HFA) lisinopril 2.5 mg tablet 2.5 mg PO DAILY 12/23/20 04/11/23 alprazolam 0.5 mg tablet 0.5 mg PO PRN PRN Anxiety 03/15/23 04/11/23 oxycodone 10 mg tablet 10 mg PO PRN PRN Pain 03/29/23 04/11/23 Allergies Allergy/AdvReac Type Severity Reaction Status Date / Time Penicillins Allergy Mild HIVES Verified 11/09/23 19:50 codeine Allergy Unknown Hives Verified 11/09/23 19:50 Contrast Media Allergy Unknown SOB Uncoded 11/09/23 19:50 Review of Systems Review of Systems: All systems as dictated in [facility] Past Medical History Medical History Anxiety and depression CHF (congestive heart failure) Chronic back pain Chronic constipation COPD (chronic obstructive pulmonary disease) Dyslipidemia Family hx of colon cancer Hx of adenomatous colonic polyps Hx of diverticulitis of colon Hypertension Nausea Weight loss Surgical History Surgical History History of bilateral carpal tunnel release History of lumbar spinal fusion Hx of appendectomy Hx of bone graft Hx of cholecystectomy Hx of colonoscopy Hx of repair of rotator cuff Hx of rotator cuff surgery Hx of tonsillectomy Hx of total hysterectomy Family History Family History Mother Heart disease Cerebrovascular accident Father Heart disease Vocal cord cancer Sibling Lymphoma Other Carcinoma of colon Social History Social History Smoking packs per day: 1 Smoking cigarettes per day: 20.0 Years smoked: 30 Smoking pack-years: 30.00 Smoking status: Current every day smoker Tobacco type: cigarettes Alcohol intake: never Substance use: never Substance use type: does not use Living arrangements: with family Gender identity (if verbalized by the patient): Female Spiritual care concerns: No Exam Narrative: GENERAL: Well-appearing, well-nourished, and in no acute distress. HEAD: Normocephalic, atraumatic. EYES: PERRLA and EOMI. ENT: Nares clear, no rhinorrhea or epistaxis. Mucous membranes moist. Oropharynx without tonsillar hypertrophy exudate or other lesions. NECK: Supple. No adenopathy or masses. CHEST: No respiratory distress. Clear to auscultation. No wheezes rales or rhonchi HEART: Regul
[2023-12-15] MEDS: HYDROmorphone HCL INJ (*CRX) 1 MG/ML SYR IM (23:33)
[2023-12-15 23:58] VITALS: BP 121/62; PULSE 79; RESP 16; O2SAT 98
== END 2023-12-16 00:07 | disposition home or self-care (01) ==
PROVIDERS: Emergency Provider Physician Assistant; PCP Family Medicine
DX: S70.02XA Contusion of left hip, initial encounter (principal); I50.9 Heart failure, unspecified; I11.0 Hypertensive heart disease with heart failure; J44.9 Chronic obstructive pulmonary disease, unspecified; E78.5 Hyperlipidemia, unspecified; F32.A Depression, unspecified; F41.9 Anxiety disorder, unspecified; F17.210 Nicotine dependence, cigarettes, uncomplicated; Z98.1 Arthrodesis status; Z86.010 Personal history of colon polyps; Z90.49 Acquired absence of other specified parts of digestive tract; Z90.710 Acquired absence of both cervix and uterus; W18.39XA Other fall on same level, initial encounter
CPT/HCPCS: 73502; 73552; 96372; 99284; J1170

== ENCOUNTER 2024-01-08 23:10 | Emergency (ER) | payer MEDICARE, MEDICAID, SELFPAY ==
--- NOTE | ~2024-01-08 | XR_ITS ---
AP view of the pelvis and AP and lateral views of the left hip Clinical history: Pain Findings: No acute fracture or dislocation is seen. There is severe degenerative change of the right hip joint, joint space narrowing and reactive sclerosis. There is moderate degenerative change of the left hip joint. Lumbosacral spinal fixation noted. Soft tissues are unremarkable. Impression: Moderate osteoarthritis of the left hip joint. Severe osteoarthritis of the right hip joint. Lumbosacral spinal fixation. Reviewed, dictated and finalized at location . Impression: Moderate osteoarthritis of the left hip joint. Severe osteoarthritis of the right hip joint. Lumbosacral spinal fixation.
[2024-01-08 23:21] VITALS: BP 125/82; PULSE 67; RESP 16; TEMP 36.2; O2SAT 100
--- NOTE | 2024-01-08 23:29 | ED.FALL ---
HPI - Fall General Chief Complaint: Fall Stated Complaint: left hip pain and frequent falls Time Seen by Provider: 01/08/24 23:20 Source: patient Limitations: no limitations History of Present Illness HPI Narrative: Patient is a 63-year-old female presents to the emergency department complaining of frequent falls and left hip pain. Patient states for the past 1 month she has been falling almost daily and having right hip pain. Patient notes that it feels like heavy walking and it is as if her left hip seems to be giving out at times causing her to fall to the ground, patient denies hitting her head or having loss of consciousness or use of blood thinners. Patient notes that she is having some pain along the left lateral hip, does not radiate, has not been taking any pain medications. Patient notes that she came in today to the emergency department because she does not have a physician that she sees on a regular basis. Patient denies numbness, weakness, use of assistive devices for ambulation, urinary incontinence, stool incontinence, fever, new back pain, abdominal pain, paresthesias. Related Data Home Medications Medication Instructions Recorded Confirmed albuterol sulfate 90 mcg/actuation 2 puff inhalation Q4-5H PRN Dyspnea 07/30/19 04/11/23 aerosol inhaler atorvastatin 20 mg tablet 20 mg PO HS 07/30/19 04/11/23 carvedilol 12.5 mg tablet 12.5 mg PO BID 07/30/19 04/11/23 fenofibrate 160 mg tablet 160 mg PO DAILY 07/30/19 04/11/23 furosemide 20 mg tablet 20 mg PO QAM 07/30/19 04/11/23 naloxegol 25 mg tablet (Movantik) 25 mg PO QAM 07/30/19 04/11/23 quetiapine 50 mg tablet 50 mg PO HS 07/30/19 04/11/23 sertraline 100 mg tablet 100 mg PO QAM 07/30/19 04/11/23 triamcinolone acetonide 0.1 % 1 applic topical BID PRN Itching 07/30/19 04/11/23 topical cream fluticasone propionate 115 2 puff inhalation Q12H 12/23/20 04/11/23 mcg-salmeterol 21 mcg/actuation HFA inhaler (Advair HFA) lisinopril 2.5 mg tablet 2.5 mg PO DAILY 12/23/20 04/11/23 alprazolam 0.5 mg tablet 0.5 mg PO PRN PRN Anxiety 03/15/23 04/11/23 oxycodone 10 mg tablet 10 mg PO PRN PRN Pain 03/29/23 04/11/23 Allergies Allergy/AdvReac Type Severity Reaction Status Date / Time Penicillins Allergy Mild HIVES Verified 11/09/23 19:50 codeine Allergy Unknown Hives Verified 11/09/23 19:50 Contrast Media Allergy Unknown SOB Uncoded 11/09/23 19:50 Review of Systems Review of Systems: A 10 system review of systems was completed on the patient and is negative except for what is stated in the HPI. Nursing and ancillary documentation was reviewed. [facility] Past Medical History Medical History Anxiety and depression CHF (congestive heart failure) Chronic back pain Chronic constipation COPD (chronic obstructive pulmonary disease) Dyslipidemia Family hx of colon cancer Hx of adenomatous colonic polyps Hx of diverticulitis of colon Hypertension Nausea Weight loss Surgical History Surgical History History of bilateral carpal tunnel release History of lumbar spinal fusion Hx of appendectomy Hx of bone graft Hx of cholecystectomy Hx of colonoscopy Hx of repair of rotator cuff Hx of rotator cuff surgery Hx of tonsillectomy Hx of total hysterectomy Family History Family History Mother Heart disease Cerebrovascular accident Father Heart disease Vocal cord cancer Sibling Lymphoma Other Carcinoma of colon Social History Social History Smoking packs per day: 1 Smoking cigarettes per day: 20.0 Years smoked: 30 Smoking pack-years: 30.00 Smoking status: Current every day smoker Tobacco type: cigarettes Alcohol intake: never Substance use: never Substance use type: does not use Living arrangements: with family G
[2024-01-08] MEDS: ACETAMINOPHEN 500 MG TABLET 1000 MG PO (23:42)
[2024-01-09] MEDS: HYDROmorphone HCL INJ (*CRX) 1 MG/ML SYR IM (00:27)
[2024-01-09 00:46] VITALS: BP 107/76; PULSE 71; RESP 15; O2SAT 96
== END 2024-01-09 00:48 | disposition home or self-care (01) ==
PROVIDERS: Emergency Provider Student in an Organized Health Care Education/Training Program; PCP Family Medicine
DX: M25.552 Pain in left hip (principal); R29.6 Repeated falls; I50.9 Heart failure, unspecified; E78.5 Hyperlipidemia, unspecified; J44.9 Chronic obstructive pulmonary disease, unspecified; F41.9 Anxiety disorder, unspecified; F32.A Depression, unspecified; F17.210 Nicotine dependence, cigarettes, uncomplicated; Z98.1 Arthrodesis status; Z86.010 Personal history of colon polyps; Z90.49 Acquired absence of other specified parts of digestive tract; Z90.710 Acquired absence of both cervix and uterus; Z79.899 Other long term (current) drug therapy; M16.0 Bilateral primary osteoarthritis of hip
CPT/HCPCS: 73502; 96372; 99283; A9270; J1170

== ENCOUNTER 2024-03-02 23:52 | Emergency (ER) | payer MEDICARE, MEDICAID, SELFPAY ==
--- NOTE | ~2024-03-02 | CT_ITS ---
EXAMINATION: CT abd pelvis lumbar wo con DATE: 03/03/2024 04:32 INDICATION: Fall. Right lower quadrant pain. History of appendectomy. TECHNIQUE: Computed tomography (CT) of the abdomen and pelvis was performed without intravenous contr ast. Automated exposure control and iterative reconstruction technique were employed. Exam dose: 240 .54 mGy-cm total exam DLP. COMPARISON: None. FINDINGS: The lung bases are clear. Normal heart size. No pericardial or pleural effusion. Small sliding hiatal hernia. Calcified hepatic and splenic granulomas. The liver, gallbladder, bile ducts, spleen, pancreas and pancreatic duct are otherwise unremarkable. Normal morphology of the adrenal glands. No renal mass lesion or urinary tract calculus or hydroureteronephrosis is evident on this limited no ncontrast examination. There is extensive calcification but normal caliber of the abdominal aorta and iliac and femoral dario sb. No intraperitoneal or retroperitoneal or pelvic mass lesion or adenopathy or ascites. Diverticulosis of the colon; no CT evidence of diverticulitis. No bowel obstruction or intraperitonea l free air. Status post hysterectomy. Bilateral hip osteoarthritis, moderate on the left, particularly severe on the right. Status post posterior and interbody surgical fusion at L4-S1. Prominent degenerative changes of the included lower thoracic and lumbar spine. Degenerative changes include severe degenerative disease and associated minimal retrolisthesis at L1-2, moderately severe degenerative disc disease at L2-3, moderately severe degenerative disease at L3-4 with mild retrolist hesis. IMPRESSION: Small sliding hiatal hernia Diverticulosis of the colon; no evidence of diverticulitis Status post hysterectomy Status post posterior and interbody surgical fusion at L4 S1 Prominent degenerative changes of the thoracic and lumbar spine Prominent bilateral hip osteophytes, particularly severe on the left Reviewed, dictated and finalized at Location [facility]. Reviewed, dictated and finalized at location A.
[2024-03-02 23:54] VITALS: BP 112/63; PULSE 82; RESP 22; TEMP 36.4; O2SAT 100
[2024-03-03] VITALS (7 sets, daily range): BP systolic 106–140; BP diastolic 59–79
[2024-03-03] MEDS: SODIUM CHLORIDE 0.9% IV 1,000 ML 999 ML IV CONT (03:31)
[2024-03-03] MEDS: ACETAMINOPHEN 500 MG TABLET 1000 MG PO (03:32)
[2024-03-03] MEDS: KETOROLAC 15 MG/ML VIAL (*BKC) IV PUSH (03:32)
[2024-03-03 03:47] LABS: Basophils Absolute Auto 0.1 K/mm3 (0.0-0.1); Eosinophils Absolute Auto 0.2 K/mm3 (0-0.3); Eosinophils Percent Auto 2.1 % (0-4.4); Hematocrit 42.7 % (37.0-47.0); Hemoglobin 13.6 g/dL (12.0-15.0); Immature Granulocyte Absolute 0.02 K/mm3 (0.00-0.031); Immature Granulocyte Percent A 0.2 % (0-0.5); Lymphocytes Absolute Auto 2.34 K/mm3 (0.9-3.2); Lymphocytes Percent Auto 26.1 % (18.3-44.2); Mean Corpuscular HGB Conc 31.9 g/dl (32-36); Mean Corpuscular Hemoglobin 33.2 pg (26-34); Mean Corpuscular Volume 104.1 fl (80-100); Mean Platelet Volume 9.4 fl (7.4-10.4); Monocytes Absolute Auto 0.8 K/mm3 (0.1-0.6); Monocytes Percent Auto 9.4 % (2.6-8.5); Neutrophils Absolute Auto 5.5 K/mm3 (1.3-6.7); Neutrophils Percent Auto 61.2 % (45.5-73.1); Platelet Count Result 207 k/mm3 (150-375); Red Cell Distribution Width 15.7 % (11.5-14.5)
[2024-03-03 03:56] LABS: Alanine Aminotransferase 19 U/L (6-35); Albumin Level 3.8 g/dL (3.5-5.1); Alkaline Phosphatase 96 U/L (38-126); Anion Gap 9 mmol/L (4-12); Aspartate Amino Transferase 21 U/L (14-36); Bilirubin,Total 0.2 mg/dL (0.2-1.3); Blood Urea Nitrogen 11 mg/dL (7-17); Carbon Dioxide 25 mmol/L (22-30); Chloride 103 mmol/L (98-107); Estimated CRCL calculation 73 ml/min; Estimated Glomerular Filt Rate > 60; Glucose 75 mg/dL (65-110); Lipase 177 U/L (23-300); Potassium 3.4 mmol/L (3.4-5.0); Sodium 137 mmol/L (137-145)
--- NOTE | 2024-03-03 04:19 | PC.NURSE ---
Patient in CT at this time.
--- NOTE | 2024-03-03 05:31 | ED.GENADULT ---
HPI - General Adult General Chief complaint: Fall Stated complaint: fall, r hip pain Time Seen by Provider: 03/03/24 01:58 History of Present Illness HPI narrative: This is a 63-year-old female presenting ED after a fall. Patient mechanical fall earlier today and landed on her right side. Since then she has been having pain in her right hip that is worse with ambulation. Patient has history of arthritis in her left hip and has been told by an orthopedic surgeon she has a hip replacement. Patient did not strike her head. She has no other injuries. Related Data Home Medications Medication Instructions Recorded Confirmed albuterol sulfate 90 mcg/actuation 2 puff inhalation Q4-5H PRN Dyspnea 07/30/19 02/22/24 aerosol inhaler atorvastatin 20 mg tablet 20 mg PO HS 07/30/19 02/22/24 carvedilol 12.5 mg tablet 12.5 mg PO BID 07/30/19 02/22/24 fenofibrate 160 mg tablet 160 mg PO DAILY 07/30/19 02/22/24 furosemide 20 mg tablet 20 mg PO QAM 07/30/19 02/22/24 naloxegol 25 mg tablet (Movantik) 25 mg PO QAM 07/30/19 02/22/24 quetiapine 50 mg tablet 50 mg PO HS 07/30/19 02/22/24 sertraline 100 mg tablet 100 mg PO QAM 07/30/19 02/22/24 triamcinolone acetonide 0.1 % 1 applic topical BID PRN Itching 07/30/19 02/22/24 topical cream fluticasone propionate 115 2 puff inhalation Q12H 12/23/20 02/22/24 mcg-salmeterol 21 mcg/actuation HFA inhaler (Advair HFA) lisinopril 2.5 mg tablet 2.5 mg PO DAILY 12/23/20 02/22/24 alprazolam 0.5 mg tablet 0.5 mg PO PRN PRN Anxiety 03/15/23 02/22/24 oxycodone 10 mg tablet 10 mg PO PRN PRN Pain 03/29/23 02/22/24 Allergies Allergy/AdvReac Type Severity Reaction Status Date / Time Penicillins Allergy Mild HIVES Verified 03/03/24 02:01 codeine Allergy Unknown Hives Verified 03/03/24 02:01 Contrast Media Allergy Unknown SOB Uncoded 02/22/24 14:08 [facility] Past Medical History Medical History Anxiety and depression CHF (congestive heart failure) Chronic back pain Chronic constipation COPD (chronic obstructive pulmonary disease) Dyslipidemia Family hx of colon cancer Hx of adenomatous colonic polyps Hx of diverticulitis of colon Hypertension Nausea Weight loss Surgical History Surgical History History of bilateral carpal tunnel release History of lumbar spinal fusion Hx of appendectomy Hx of bone graft Hx of cholecystectomy Hx of colonoscopy Hx of repair of rotator cuff Hx of rotator cuff surgery Hx of tonsillectomy Hx of total hysterectomy Family History Family History Mother Heart disease Cerebrovascular accident Father Heart disease Vocal cord cancer Sibling Lymphoma Other Carcinoma of colon Social History Social History Smoking packs per day: 1 Smoking cigarettes per day: 20.0 Years smoked: 30 Smoking pack-years: 30.00 Smoking status: Current every day smoker Tobacco type: cigarettes Alcohol intake: never Substance use: never Substance use type: does not use Living arrangements: with family Gender identity (if verbalized by the patient): Female Spiritual care concerns: No Exam Narrative: APPEARANCE: No apparent distress. Appears older than her stated age Head: atraumatic. EYES: EOMI, NOSE: Atraumatic NECK/back: Trachea midline, severe kyphosis RESPIRATORY: No increased rate of breathing CARDIOVASCULAR: RRR, ABDOMINAL: Non-distended soft nontender MUSCULOSKELETAl: No obvious deformities NEURO: Alert. Moving 4/4 extremities, SKIN:: Warm, dry. Normal color PSYCHIATRIC: Normal affect Course Vital Signs Vital signs: Vital Signs Temperature 97.6 F 03/02/24 23:54 Pulse Rate 82 03/02/24 23:54 Respiratory Rate 22 H 03/02/24 23:54 Blood Pressure 112/63 03/02/24 23:54 Pulse Oximetry 100 03/02/24 23:54 Ox
[2024-03-03] MEDS: oxyCODONE HCL (*CRX) 5 MG TAB IR PO (06:04)
[2024-03-03 07:42] LABS: Reflex Lactic Acid Yes or No Add Lactic
== END 2024-03-03 06:16 | disposition home or self-care (01) ==
PROVIDERS: Emergency Provider Emergency Medicine; PCP Family Medicine
DX: S79.911A Unspecified injury of right hip, initial encounter (principal); I50.9 Heart failure, unspecified; I11.0 Hypertensive heart disease with heart failure; J44.9 Chronic obstructive pulmonary disease, unspecified; E78.5 Hyperlipidemia, unspecified; M16.0 Bilateral primary osteoarthritis of hip; F41.9 Anxiety disorder, unspecified; F32.A Depression, unspecified; F17.210 Nicotine dependence, cigarettes, uncomplicated; Z98.1 Arthrodesis status; Z86.010 Personal history of colon polyps; Z90.49 Acquired absence of other specified parts of digestive tract; Z90.710 Acquired absence of both cervix and uterus; Z79.899 Other long term (current) drug therapy; K57.90 Diverticulosis of intestine, part unspecified, without perforation or abscess without bleeding; K44.9 Diaphragmatic hernia without obstruction or gangrene; M51.36 Other intervertebral disc degeneration, lumbar region; W19.XXXA Unspecified fall, initial encounter
CPT/HCPCS: 36415; 72131; 74176; 80053; 83605; 83690; 85025; 96361; 96374; 99284; A9270; J1885; J7030

== ENCOUNTER 2024-03-30 20:49 | Emergency (ER) | payer MEDICARE, MEDICAID, SELFPAY ==
--- NOTE | ~2024-03-30 | XR_ITS ---
XR hip RT 2V w AP pelvis DATE: 03/30/2024 21:22 INDICATION: Fall. Hip pain. TECHNIQUE: AP pelvis. AP and lateral views right hip. COMPARISON: 02/22/2024 pelvis and bilateral hips FINDINGS: There is severe joint space narrowing and spurring consistent with severe osteoarthritis at the right hip. Moderate left hip osteoarthritis. No fracture or dislocation of the right hip. Normal alignment at the pubic symphysis and sacroiliac joints. No pelvic fracture or bone destruction is evident. Status post posterior and interbody surgical fusion at L4-S1. Levoscoliosis and multilevel severe deg enerative disc disease of the lumbar spine. Osteopenia. IMPRESSION: Bilateral hip osteoporosis, severe on the right, moderate on the left No pelvic or right hip fracture or dislocation Status post posterior and interbody surgical fusion at L4-S1 Severe degenerative disease of the lumbar spine Osteopenia Reviewed, dictated and finalized at location J. IMPRESSION: Bilateral hip osteoporosis, severe on the right, moderate on the le ft No pelvic or right hip fracture or dislocation Status post posterior and interbody surgical fusion at L4-S1 Severe degenerative disease of the lumbar spine Osteopenia
[2024-03-30 21:04] VITALS: BP 112/63; PULSE 70; RESP 17; TEMP 36.6; O2SAT 98
--- NOTE | 2024-03-30 22:37 | ED.EXTPRO ---
HPI - Extremity Problem General Chief complaint: Extremity Problem,Nontraumatic Stated complaint: right hip pain, chronic pain for months, Time Seen by Provider: 03/30/24 21:42 Source: patient Mode of arrival: wheelchair Limitations: no limitations History of Present Illness HPI Narrative: This is a 63 year old female that presents to the ER for right hip pain. Reports she has chronic pain in the right hip. Her hip gave out on her and she fell onto her hip. She did not hit her head or lose consciousness. Reports worsening pain in her hip since. Denies decreased ROM or numbness. Related Data Home Medications Medication Instructions Recorded Confirmed albuterol sulfate 90 mcg/actuation 2 puff inhalation Q4-5H PRN Dyspnea 07/30/19 02/22/24 aerosol inhaler atorvastatin 20 mg tablet 20 mg PO HS 07/30/19 02/22/24 carvedilol 12.5 mg tablet 12.5 mg PO BID 07/30/19 02/22/24 fenofibrate 160 mg tablet 160 mg PO DAILY 07/30/19 02/22/24 furosemide 20 mg tablet 20 mg PO QAM 07/30/19 02/22/24 naloxegol 25 mg tablet (Movantik) 25 mg PO QAM 07/30/19 02/22/24 quetiapine 50 mg tablet 50 mg PO HS 07/30/19 02/22/24 sertraline 100 mg tablet 100 mg PO QAM 07/30/19 02/22/24 triamcinolone acetonide 0.1 % 1 applic topical BID PRN Itching 07/30/19 02/22/24 topical cream fluticasone propionate 115 2 puff inhalation Q12H 12/23/20 02/22/24 mcg-salmeterol 21 mcg/actuation HFA inhaler (Advair HFA) lisinopril 2.5 mg tablet 2.5 mg PO DAILY 12/23/20 02/22/24 alprazolam 0.5 mg tablet 0.5 mg PO PRN PRN Anxiety 03/15/23 02/22/24 oxycodone 10 mg tablet 10 mg PO PRN PRN Pain 03/29/23 02/22/24 Allergies Allergy/AdvReac Type Severity Reaction Status Date / Time Penicillins Allergy Mild HIVES Verified 03/30/24 21:08 codeine Allergy Unknown Hives Verified 03/30/24 21:08 Contrast Media Allergy Unknown SOB Uncoded 02/22/24 14:08 Review of Systems Review of Systems: CONSTITUTIONAL: Denies fever MUSCULOSKELETAL: Reports joint pain, and myalgia. NEUROLOGIC: Denies numbness All systems reviewed & are unremarkable except as noted in HPI and below PMFSH Past Medical History Medical History Anxiety and depression CHF (congestive heart failure) Chronic back pain Chronic constipation COPD (chronic obstructive pulmonary disease) Dyslipidemia Family hx of colon cancer Hx of adenomatous colonic polyps Hx of diverticulitis of colon Hypertension Nausea Weight loss Surgical History Surgical History History of bilateral carpal tunnel release History of lumbar spinal fusion Hx of appendectomy Hx of bone graft Hx of cholecystectomy Hx of colonoscopy Hx of repair of rotator cuff Hx of rotator cuff surgery Hx of tonsillectomy Hx of total hysterectomy Family History Family History Mother Heart disease Cerebrovascular accident Father Heart disease Vocal cord cancer Sibling Lymphoma Other Carcinoma of colon Social History Social History Smoking packs per day: 1 Smoking cigarettes per day: 20.0 Years smoked: 30 Smoking pack-years: 30.00 Smoking status: Current every day smoker Tobacco type: cigarettes Alcohol intake: never Substance use: never Substance use type: does not use Living arrangements: with family Gender identity (if verbalized by the patient): Female Spiritual care concerns: No Exam Narrative: GENERAL: Well-appearing, well-nourished, and in no acute distress. HEAD: Normocephalic, atraumatic. EYES: EOMI. EXTREMITIES: Normal range of motion. No edema. Normal DP pulse. Normal sensation SKIN: Warm, dry, no rash. NEURO: No focal deficits. Alert and oriented x3. PSYCH: Normal mood and affect Course Course Emergency Course: Patient updated on workup and agrees with plan of care
[2024-03-30] MEDS: oxyCODONE HCL (*CRX) 5 MG TAB IR 10 MG PO (22:53)
[2024-03-30] MEDS: diazePAM INJ (*CRX) 10 MG/2 ML SYRINGE 5 MG IM (22:54)
[2024-03-30] MEDS: ACETAMINOPHEN 500 MG TABLET 1000 MG PO (22:54)
[2024-03-30 22:55] VITALS: BP 114/69; PULSE 65; RESP 16; TEMP 36.6; O2SAT 100
[2024-03-30 23:18] VITALS: BP 120/63; PULSE 62; RESP 16; TEMP 36.4; O2SAT 99
[2024-03-31] MEDS: KETOROLAC 30 MG/ML VIAL (*BKC) IM (00:01)
== END 2024-03-31 00:30 | disposition home or self-care (01) ==
PROVIDERS: Emergency Provider Physician Assistant; PCP Family Medicine
DX: M16.11 Unilateral primary osteoarthritis, right hip (principal); I11.0 Hypertensive heart disease with heart failure; I50.9 Heart failure, unspecified; E78.5 Hyperlipidemia, unspecified; J44.9 Chronic obstructive pulmonary disease, unspecified; F17.210 Nicotine dependence, cigarettes, uncomplicated
CPT/HCPCS: 73502; 96372; 99284; A9270; J1885; J3360

== ENCOUNTER 2024-05-03 20:29 | Emergency (ER) | payer MEDICARE, MEDICAID, SELFPAY ==
--- NOTE | ~2024-05-03 | XR_ITS ---
XR hip RT 2V w AP pelvis Ordering provider: Jeremías Marcus MD History: . Pain status post fall . Comparison: None. FINDINGS: BONES: No acute fracture or dislocation. HIP JOINT SPACES: Severe ostial arthritic changes in the right hip. Impingement also seen. SACROILIAC JOINT SPACES/LUMBAR SPINE: The sacroiliac joint spaces shows bilateral sacroiliacs. Postop erative changes in the lower spine. Mild degenerative changes of the visualized lower lumbar spine. PUBIC SYMPHYSIS: Pubic symphysitis. SOFT TISSUES: Vascular calcifications. IMPRESSION: No acute osseous abnormality pelvis and right hip. Reviewed, dictated and finalized at location A.
[2024-05-03 20:41] VITALS: BP 111/54; PULSE 82; RESP 20; TEMP 36.5; O2SAT 99
--- NOTE | 2024-05-03 22:54 | ED.LOWEXIN ---
HPI - Extremity Injury (Lower) General Chief Complaint: Extremity Injury, Lower Stated Complaint: Fall/R hip pain Time Seen by Provider: 05/03/24 22:14 History of Present Illness HPI Narrative: 63-year-old female with a history of COPD, CHF, chronic hip pain, hypertension presents to the emergency department for right hip pain. Patient states she has chronic hip pain and is scheduled on 05/17 to see orthopedist at [facility] to discuss a right hip replacement. States today while she was ambulating with her walker her right leg gave out 3 times. Each time she fell to the ground and landed on her right hip. She states her hip is now hurting more than normal. She denies hitting her head or losing consciousness. Denies use of anticoagulants. She does take oxycodone 10mg for chronic back pain and states she took this at 1:00 p.m. today. She denies other injuries acquired. She is reporting back pain but states this is unchanged from her baseline. Denies saddle anesthesia, bowel or bladder incontinence or retention. Related Data Home Medications Medication Instructions Recorded Confirmed albuterol sulfate 90 mcg/actuation 2 puff inhalation Q4-5H PRN Dyspnea 07/30/19 02/22/24 aerosol inhaler atorvastatin 20 mg tablet 20 mg PO HS 07/30/19 02/22/24 carvedilol 12.5 mg tablet 12.5 mg PO BID 07/30/19 02/22/24 fenofibrate 160 mg tablet 160 mg PO DAILY 07/30/19 02/22/24 furosemide 20 mg tablet 20 mg PO QAM 07/30/19 02/22/24 naloxegol 25 mg tablet (Movantik) 25 mg PO QAM 07/30/19 02/22/24 quetiapine 50 mg tablet 50 mg PO HS 07/30/19 02/22/24 sertraline 100 mg tablet 100 mg PO QAM 07/30/19 02/22/24 triamcinolone acetonide 0.1 % 1 applic topical BID PRN Itching 07/30/19 02/22/24 topical cream fluticasone propionate 115 2 puff inhalation Q12H 12/23/20 02/22/24 mcg-salmeterol 21 mcg/actuation HFA inhaler (Advair HFA) lisinopril 2.5 mg tablet 2.5 mg PO DAILY 12/23/20 02/22/24 alprazolam 0.5 mg tablet 0.5 mg PO PRN PRN Anxiety 03/15/23 02/22/24 oxycodone 10 mg tablet 10 mg PO PRN PRN Pain 03/29/23 02/22/24 Allergies Allergy/AdvReac Type Severity Reaction Status Date / Time Penicillins Allergy Mild HIVES Verified 05/03/24 22:13 codeine Allergy Unknown Hives Verified 05/03/24 22:13 ketorolac [From Toradol] AdvReac Nausea and Verified 05/03/24 22:13 Vomiting Contrast Media Allergy Unknown SOB Uncoded 05/03/24 22:13 Review of Systems Review of Systems: All systems reviewed & are unremarkable except as noted in HPI and below PMFSH Past Medical History Medical History Anxiety and depression CHF (congestive heart failure) Chronic back pain Chronic constipation COPD (chronic obstructive pulmonary disease) Dyslipidemia Family hx of colon cancer Hx of adenomatous colonic polyps Hx of diverticulitis of colon Hypertension Nausea Weight loss Surgical History Surgical History History of bilateral carpal tunnel release History of lumbar spinal fusion Hx of appendectomy Hx of bone graft Hx of cholecystectomy Hx of colonoscopy Hx of repair of rotator cuff Hx of rotator cuff surgery Hx of tonsillectomy Hx of total hysterectomy Family History Family History Mother Heart disease Cerebrovascular accident Father Heart disease Vocal cord cancer Sibling Lymphoma Other Carcinoma of colon Social History Social History Smoking packs per day: 1 Smoking cigarettes per day: 20.0 Years smoked: 30 Smoking pack-years: 30.00 Smoking status: Current every day smoker Tobacco type: cigarettes Alcohol intake: never Substance use: never Substance use type: does not use Living arrangements: with family Gender identity (if verbalized by the patient): Female Spiritual care concerns: No
[2024-05-03] MEDS: LIDOCAINE 5% PATCH 1 PATCH TRANSDERM (23:33)
[2024-05-03] MEDS: ACETAMINOPHEN 500 MG TABLET 1000 MG PO (23:33)
[2024-05-03] MEDS: CYCLOBENZAPRINE HCL 5 MG TABLET PO (23:34)
[2024-05-04 00:29] VITALS: BP 138/87; PULSE 89; RESP 14; O2SAT 97
[2024-05-04] MEDS: oxyCODONE HCL (*CRX) 5 MG TAB IR PO (00:53)
== END 2024-05-04 01:10 | disposition home or self-care (01) ==
PROVIDERS: Emergency Provider Physician Assistant; PCP Family Medicine
DX: S70.01XA Contusion of right hip, initial encounter (principal); W18.30XA Fall on same level, unspecified, initial encounter; I50.9 Heart failure, unspecified; J44.9 Chronic obstructive pulmonary disease, unspecified; I11.0 Hypertensive heart disease with heart failure; G89.29 Other chronic pain; F41.8 Other specified anxiety disorders; E78.5 Hyperlipidemia, unspecified; F17.210 Nicotine dependence, cigarettes, uncomplicated
CPT/HCPCS: 73502; 99283; A9270

== ENCOUNTER 2024-05-08 11:25 | Outpatient (CLI) | payer MEDICARE, MEDICAID, SELFPAY ==
[2024-05-08 12:28] LABS: Basophils Percent Auto 0.6 % (0.2-1.2); Eosinophils Absolute Auto 0.1 K/mm3 (0-0.3); Eosinophils Percent Auto 1.4 % (0-4.4); Hematocrit 43.4 % (37.0-47.0); Hemoglobin 13.9 g/dL (12.0-15.0); Immature Granulocyte Absolute 0.02 K/mm3 (0.00-0.031); Immature Granulocyte Percent A 0.3 % (0-0.5); Lymphocytes Absolute Auto 1.38 K/mm3 (0.9-3.2); Lymphocytes Percent Auto 21.4 % (18.3-44.2); Mean Corpuscular Hemoglobin 32.9 pg (26-34); Mean Corpuscular Volume 102.8 fl (80-100); Mean Platelet Volume 9.6 fl (7.4-10.4); Monocytes Absolute Auto 0.4 K/mm3 (0.1-0.6); Monocytes Percent Auto 6.7 % (2.6-8.5); Neutrophils Absolute Auto 4.5 K/mm3 (1.3-6.7); Neutrophils Percent Auto 69.6 % (45.5-73.1); Platelet Count Result 309 k/mm3 (150-375); Red Blood Count 4.22 M/mm3 (4.2-5.4); Red Cell Distribution Width 14.5 % (11.5-14.5); White Blood Count 6.5 K/mm3 (4.5-10.0)
[2024-05-08 12:39] LABS: Alanine Aminotransferase 12 U/L (6-35); Albumin Level 4.1 g/dL (3.5-5.1); Alkaline Phosphatase 93 U/L (38-126); Anion Gap 8 mmol/L (4-12); Aspartate Amino Transferase 21 U/L (14-36); Bilirubin,Total 0.3 mg/dL (0.2-1.3); Blood Urea Nitrogen 17 mg/dL (7-17); Carbon Dioxide 26 mmol/L (22-30); Chloride 105 mmol/L (98-107); Cholesterol 166 mg/dL (0-200); Estimated Glomerular Filt Rate > 60; Glucose 87 mg/dL (65-110); HDL Direct 46 mg/dL; Potassium 4.1 mmol/L (3.4-5.0); Sodium 139 mmol/L (137-145); Triglycerides 122 mg/dL (<150)
[2024-05-08 12:40] LABS: INR 0.9
[2024-05-08 12:41] LABS: Partial Thromboplastin Time 25.9 Seconds (22.3-36.8)
[2024-05-08 12:50] LABS: LDL Cholesterol Direct 83 mg/dL
[2024-05-08 13:10] LABS: Thyroid Stimulating Hormone 0.553 uIU/mL (0.465-4.680); Total Triiodothyronine (T3) 0.87 NG/ML (0.97-1.69)
[2024-05-08 13:42] LABS: Free T4 Free Thyroxine 0.87 ng/mL (0.78-2.19)
== END 2024-05-08 11:26 | disposition home or self-care (01) ==
PROVIDERS: PCP Family Medicine; Visit Provider Family Medicine
DX: R53.83 Other fatigue (principal); I10 Essential (primary) hypertension; E78.5 Hyperlipidemia, unspecified; I50.32 Chronic diastolic (congestive) heart failure
CPT/HCPCS: 36415; 80053; 80061; 84439; 84443; 84480; 85025; 85610; 85730

== ENCOUNTER 2024-07-27 08:43 | Outpatient (CLI) | payer MEDICARE, MEDICAID, SELFPAY ==
--- NOTE | ~2024-07-27 | MM_ITS ---
EXAMINATION: MM screening shahnaz BI w shani HISTORY: Screening TECHNIQUE: Craniocaudal and mediolateral oblique 3-D tomosynthesis images were obtained and synthetic 2-D images were generated. CAD analysis was submitted and interpreted. COMPARISON: Comparison to multiple prior studies sequentially, with oldest reviewed study dated 04/27. BREAST PARENCHYMAL COMPOSITION: Not dense: There are scattered areas of fibroglandular density. FINDINGS: There is no evidence of suspicious mass, calcification, or architectural distortion to sugg est malignancy in either breast. There has been no suspicious interval change. IMPRESSION: 1. No mammographic evidence of malignancy. 2. Recommend routine screening mammography in one year. BI-RADS Category 1: Negative Reviewed, dictated and finalized at location B. [employer] REPRESENTATIVE
== END 2024-07-27 08:44 | disposition home or self-care (01) ==
LOC: MICIMG 08:44
PROVIDERS: PCP Family Medicine; Visit Provider Family Medicine
DX: Z12.31 Encounter for screening mammogram for malignant neoplasm of breast (principal)
CPT/HCPCS: 77063; 77067